=== PATIENT | male | born 1985 | race Caucasian/White ===

== ENCOUNTER 2020-06-11 21:38 | Inpatient (IN) | payer OTHER ==
[~2020-06-11] VITALS: Ht 170.2 cm; Wt 73.2 kg
[~2020-06-11 21:38] MED LIST: AGM875T PO; CLIN-62 PO; CPR500T PO; DOXY-233 PO; HYDR-1231 PO; HYDR-34 PO; METR500T PO; MSL400TEC PO; OXYC10TA8 PO; TRM50T PO; iron sulfate PO
[2020-06-11] MEDS ORDERED: NS IV 1000 ML 1,000 ML IV STA (21:58)
[2020-06-11] MEDS ORDERED: ONDANSETRON 4 MG/2 ML (SDV) Z0FRAN IVP ONE (22:00)
--- NOTE | 2020-06-11 22:06 | ED Abdominal Pain ---
General Chief Complaint: Abdominal/GI Problems Stated Complaint: BOWEL OBSTRUCTION Source of Information: Patient Exam Limitations: No Limitations History of Present Illness Date Seen by Provider: Jun 11, 2020 Time Seen by Provider: 22:03 Initial Comments Patient is a 35-year-old male who presents to the emergency department today wit h a chief complaint of abdominal pain, nausea and vomiting. Patient states symptoms started 2 days ago on Thursday. Patient states that normally he has a bowel movement every 3-4 hours secondary to a history of abdominal surgeries and (possible) Crohn's disease . Patient states that symptoms began with diarrhea and then bowel movements stopped and he stayed nauseated and has co ntinued to vomit up everything he is trying to eat over the last 3 days. He denies fevers or chills. Has significant abdominal pain. He is declining pain medications at this time. Denies problems with urination. Denies black or bloody stools. No other recent illnesses or injuries. Abdominal surgery was an appendectomy. Also patient had a gut a parasite while deployed in [place] with the [employer] Has had endoscoies/colonoscopies before. 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 All other review of systems reviewed and negative except as stated above. Timing/Duration: 2-3 Days Severity/Quality: Severe, Cramping Location: Generalized Abdomen Radiation: Back, Flank (Bilateral flanks) Activities at Onset: None Allergies and Home Medications Allergies Coded Allergies: naproxen (Unverified Allergy, Unknown, 09/18/13) Uncoded Allergies: ADVANCED FORM OF PCN (Allergy, Mild, 09/18/13) Home Medications No Active Prescriptions or Reported Meds Patient Home Medication List Home Medication List Reviewed: Yes Review of Systems Review of Systems Constitutional: see HPI EENTM: No Symptoms Reported Respiratory: No Symptoms Reported Cardiovascular: No Symptoms Reported Gastrointestinal: Abdomen Distended, Abdominal Pain, Nausea, Poor Appetite, Vomiting Genitourinary: No Symptoms Reported Musculoskeletal: no symptoms reported Skin: other (Diaphoresis) All Other Systems Reviewed Negative Unless Noted: Yes Past Qssdhfk-Hgcybf-Vtcawy Hx Patient Social History Recent Foreign Travel: No Contact w/Someone Who Travel: No Immunizations Up To Date Tetanus Booster (TDap): Less than 5yrs PED Vaccines UTD: Yes Date of Influenza Vaccine: May 08, 2013 Past Medical History Abdominal, Appendectomy, Bowel Surgery Reproductive Disorders: No Crohns Disease, Ulcer Chronic Back Pain Adverse Reaction/Blood Tranf: No Family Medical History No Pertinent Family Hx Physical Exam Vital Signs Vital Signs - First Documented 06/11/20 21:45 Temp 36.7 Pulse 114 Resp 18 B/P (MAP) 142/98 (113) Pulse Ox 96 O2 Delivery Room Air Capillary Refill : Height/Weight/BMI Height: 5'7" Weight: 155lbs. oz. 70.423809dw; BMI Method:Stated General Appearance: WD/WN, no apparent distress HEENT: PERRL/EOMI Neck: full range of motion Respiratory: lungs clear, normal breath sounds, no respiratory distress Cardiovascular: regular rate, rhythm Gastrointestinal: abnormal bowel sounds (Hypoactive bowel sounds), guarding, tenderness Extremities: non-tender, normal inspection, no pedal edema, no calf tenderness Neurologic/Psychiatric: no motor/sensory deficits, alert, normal mood/affect, oriented x 3 Skin: normal color, diaphoresis Progress/Results/Core Measures Results/Orders Lab Results Laboratory Tests Test 06/11/20 21:50 06/12/20 00:25 Range/Units White Blood Count 8.3 4.3-11.0 10^3/uL Red Blood Count 5.97 H 4.30-5.52 10^6/uL Hemoglobin 16.8 13.3-17.7 g/dL Hematocrit 48 40-54 % Mean Corpuscular Volume 81 80-99 fL Mean Corpuscular Hemoglobin 28 25-34 pg Mean Corpuscular Hemoglobin Concent 35 32-36 g/dL Red Cell Distribution Width 12.8 10.0-14.5 % Platelet Count 294 130-400 10^3/uL Mean Platelet Volume 9.9 9.0-12.2 fL Immature Granulocyte % (Auto) 0 % Neutrophils (%) (Auto) 70 42-75 % Lymphocytes (%) (Auto) 13 12-44 % Monocytes (%) (Auto) 15 H 0-12 % Eosinophils (%) (Auto) 2 0-10 % Basophils (%) (Auto) 0 0-10 % Neutrophils # (Auto) 5.8 1.8-7.8 10^3/uL Lymphocytes # (Auto) 1.1 1.0-4.0 10^3/uL Monocytes # (Auto) 1.2 H 0.0-1.0 10^3/uL Eosinophils # (Auto) 0.1 0.0-0.3 10^3/uL Basophils # (Auto) 0.0 0.0-0.1 10^3/uL Immature Granulocyte # (Auto) 0.0 0.0-0.1 10^3/uL Sodium Level 135 135-145 MMOL/L Potassium Level 3.4 L 3.6-5.0 MMOL/L Chloride Level 101 98-107 MMOL/L Carbon Dioxide Level 18 L 21-32 MMOL/L Anion Gap 16 H 5-14 MMOL/L Blood Urea Nitrogen 12 7-18 MG/DL Creatinine 1.01 0.60-1.30 MG/DL Estimat Glomerular Filtration Rate > 60 BUN/Creatinine Ratio 12 Glucose Level 149 H 70-105 MG/DL Calcium Level 9.1 8.5-10.1 MG/DL Corrected Calcium 8.9 8.5-10.1 MG/DL Total Bilirubin 2.7 H 0.1-1.0 MG/DL Aspartate Amino Transf (AST/SGOT) 13 5-34 U/L Alanine Aminotransferase (ALT/SGPT) 12 0-55 U/L Alkaline Phosphatase 124 40-136 U/L Total Protein 7.6 6.4-8.2 GM/DL Albumin 4.3 3.2-4.5 GM/DL Lipase 8 8-78 U/L Urine Color YELLOW Urine Clarity CLEAR Urine pH 6.5 5-9 Urine Specific [place] <=1.005 1.016-1.022 Urine Protein NEGATIVE NEGATIVE Urine Glucose (UA) NEGATIVE NEGATIVE Urine Ketones NEGATIVE NEGATIVE Urine Nitrite NEGATIVE NEGATIVE Urine Bilirubin NEGATIVE NEGATIVE Urine Urobilinogen 0.2 < = 1.0 MG/DL Urine Leukocyte Esterase NEGATIVE NEGATIVE Urine RBC (Auto) NEGATIVE NEGATIVE Urine RBC 2-5 H /HPF Urine WBC 0-2 /HPF Urine Squamous Epithelial Cells 0-2 /HPF Urine Crystals NONE /LPF Urine Bacteria NEGATIVE /HPF Urine Casts NONE /LPF Urine Mucus SMALL H /LPF Urine Culture Indicated NO My Orders Orders - MELANIE CASTRO MD Ed Iv/Invasive Line Start (06/11/20 21:58) Cbc With Automated Diff (06/11/20 21:58) Comprehensive Metabolic Panel (06/11/20 21:58) Lipase (06/11/20 21:58) Ua Culture If Indicated (06/11/20 21:58) Ct Abdomen/Pelvis W (06/11/20 21:58) Ns Iv 1000 Ml (Sodium Chloride 0.9%) (06/11/20 21:58) Ondansetron Injection (Zofran Injectio (06/11/20 22:00) Diatrizoate Meglum/Sodium 37% (Gastrogra (06/11/20 22:15) Hydromorphone Injection (Dilaudid Inject (06/11/20 22:15) Iohexol Injection (Omnipaque 350 Mg/Ml 1 (06/11/20 23:30) Received Contrast (Hold Metformin- Contr (06/11/20 23:30) Sodium Chloride Flush (Catheter Flush Sy (06/11/20 23:30) Ns (Ivpb) (Sodium Chloride 0.9% Ivpb Bag (06/11/20 23:30) Medications Given in ED Current Medications Medications Dose Ordered Sig/Juana Route Start Time Stop Time Status Last Admin Dose Admin Diatrizoate Meglum/ Diatrizoate Sod 120 ml ONCE ONCE PO 06/11/20 22:15 06/11/20 22:16 DC 06/11/20 22:30 30 ML Hydromorphone HCl 0.5 mg ONCE ONCE IV 06/11/20 22:15 06/11/20 22:16 DC 06/11/20 22:50 0.5 MG Iohexol 100 ml ONCE ONCE IV 06/11/20 23:30 06/11/20 23:31 DC 06/11/20 23:49 100 ML Ondansetron HCl 8 mg ONCE ONCE IVP 06/11/20 22:00 06/11/20 22:01 DC 06/11/20 22:10 8 MG Sodium Chloride 10 ml NEEDED PRN IV 06/11/20 23:30 06/11/20 23:49 10 ML Sodium Chloride 100 ml ONCE ONCE IV 06/11/20 23:30 06/11/20 23:31 DC 06/11/20 23:49 80 ML Vital Signs/I&O 06/11/20 21:45 Temp 36.7 Pulse 114 Resp 18 B/P (MAP) 142/98 (113) Pulse Ox 96 O2 Delivery Room Air 06/12/20 00:00 Intake Total 1000 ml Balance 1000 ml Progress Progress Note : Time: 00:43 Progress Note Patient has been resting comfortably did take a half a milligram of Dilaudid earlier. Helped his pain minimally. Patient is given IV fluids here in the emergency department. CAT scan does confirm a small bowel obstruction with an area of abnormal thickened small bowel segments in the right side of the abdomen with either a small adjacent abscess with a tiny focus of air or a sinus tract extending towards the abdominal wall. Some fluid in the colon that may suggest diarrhea. Rest of the intraperitoneal space was unremarkable per stat rad. Patient is given a another half milligram of Dilaudid here in the emergency department at this time. Case is discussed with Dr. Yoder on for general surgery who accepts the patient for admission. Departure Communication (Admissions) Time/Spoke to Admitting Phy: 00:[address] Yoder on for general surgery, accepts the patient for admission. Impression Primary Impression: Abdominal pain Qualified Codes: R10.84 - Generalized abdominal pain Additional Impression: Small bowel obstruction Disposition: ADMITTED INPATIENT Condition: Stable Admissions Decision to Admit Reason: Admit from ER (General) Decision to Admit/Date: Jun 12, 2020 Time/Decision to Admit Time: 00:40 Departure-Patient Inst. Referrals: MEDARDO MURPHY DO (PCP/Family) Primary Care Physician Scripts No Active Prescriptions or Reported Meds MELANIE CASTRO MD Jun 11, 2020 22:06
[2020-06-11 22:08] LABS: ALBUMIN 4.3 GM/DL (3.2-4.5); BASOPHILS % (AUTO) 0 % (0-10); EOSINOPHILS # (AUTO) 0.1 10^3/uL (0.0-0.3); EOSINOPHILS % (AUTO) 2 % (0-10); HEMATOCRIT 48 % (40-54); HEMOGLOBIN 16.8 g/dL (13.3-17.7); LYMPHOCYTES # (AUTO) 1.1 10^3/uL (1.0-4.0); LYMPHOCYTES % (AUTO) 13 % (12-44); MEAN CORPUSCULAR HEMOGLOBIN 28 pg (25-34); MEAN CORPUSCULAR HGB CONC 35 g/dL (32-36); MEAN CORPUSCULAR VOLUME 81 fL (80-99); MEAN PLATELET VOLUME 9.9 fL (9.0-12.2); MONOCYTES # (AUTO) 1.2 10^3/uL (0.0-1.0); MONOCYTES % (AUTO) 15 % (0-12); NEUTROPHILS # (AUTO) 5.8 10^3/uL (1.8-7.8); NEUTROPHILS % (AUTO) 70 % (42-75); PLATELET COUNT 294 10^3/uL (130-400); WHITE BLOOD COUNT 8.3 10^3/uL (4.3-11.0)
[2020-06-11 22:09] LABS: CHLORIDE 101 MMOL/L (98-107); POTASSIUM 3.4 MMOL/L (3.6-5.0); SODIUM 135 MMOL/L (135-145)
[2020-06-11 22:10] LABS: CALCIUM 9.1 MG/DL (8.5-10.1)
[2020-06-11 22:11] LABS: GLUCOSE 149 MG/DL (70-105); TOTAL PROTEIN 7.6 GM/DL (6.4-8.2)
[2020-06-11 22:12] LABS: CARBON DIOXIDE 18 MMOL/L (21-32)
[2020-06-11 22:13] LABS: BILIRUBIN,TOTAL 2.7 MG/DL (0.1-1.0)
[2020-06-11 22:14] LABS: ALKALINE PHOSPHATASE 124 U/L (40-136)
[2020-06-11 22:15] LABS: CREATININE SERUM 1.01 MG/DL (0.60-1.30); GFR ESTIMATED > 60
[2020-06-11] MEDS ORDERED: DIATRIZOATE MEGLUM/SODIUM 37% 120 ML (GASTROGRAFIN) PO ONE (22:15)
[2020-06-11] MEDS ORDERED: HYDROmorphone 2 MG/ML VIAL (DILAUDID) IV ONE (22:15)
[2020-06-11 22:16] LABS: BUN/CREATININE RATIO 12
[2020-06-11 22:18] LABS: ALANINE AMINOTRANSFERASE 12 U/L (0-55); LIPASE 8 U/L (8-78)
[2020-06-11] MEDS ORDERED: HOLD METFORMIN - RECEIVED CONTRAST 20 ML VIAL IV SCH (23:30)
[2020-06-11] MEDS ORDERED: CATHETER FLUSH 10 ML SYR IV PRN (23:30)
[2020-06-11] MEDS ORDERED: IOHEXOL 350 MG/ML 100 ML (OMNIPAQUE 350) VIAL IV ONE (23:30)
[2020-06-11] MEDS ORDERED: NS 100 ML (IVPB) BAG IV ONE (23:30)
[2020-06-12] VITALS (7 sets, daily range): BP systolic 89–152; BP diastolic 51–74
[2020-06-12 00:35] LABS: BILIRUBIN,URINE NEGATIVE (NEGATIVE); CLARITY,URINE CLEAR; COLOR,URINE YELLOW; GLUCOSE, URINE (UA) NEGATIVE (NEGATIVE); KETONES,URINE NEGATIVE (NEGATIVE); LEUKOCYTE ESTERASE ,URINE NEGATIVE (NEGATIVE); NITRITE,URINE NEGATIVE (NEGATIVE); PH,URINE 6.5 (5-9); PROTEIN,URINE NEGATIVE (NEGATIVE)
[2020-06-12] MEDS ORDERED: HYDROmorphone 2 MG/ML VIAL (DILAUDID) IV ONE (00:45)
[2020-06-12 01:01] LABS: BACTERIA,URINE NEGATIVE /HPF; SQUAMOUS EPITHELIAL CELL,UR 0-2 /HPF; WBC,URINE 0-2 /HPF
--- NOTE | 2020-06-12 01:30 | NUR ---
JACK SMITH admitted to room 415-1, with an admitting diagnosis of SMALL BOWEL OBSTRUCTION; ABDOMINAL PAIN, on 06/12/20 from ER via , accompanied by ED STAFF. JACK SMITH introduced to surroundings, call light, bed controls, phone, TV, temperature control, lights, meal times, smoking policy, visitor policy, side rail policy, bathrooms and showers. Patient Rights given to patient in the handbook. JACK SMITH verbalizes understanding that [facility] is not responsible for the loss or damage to any personal effects or valuables that are kept in the patients posession during their hospitalization.
[2020-06-12] MEDS: NS IV 1000 ML 1,000 ML IV SCH ×3 (01:35→18:17)
[2020-06-12] MEDS ORDERED: ONDANSETRON 4 MG/2 ML (SDV) Z0FRAN IVP PRN (01:45)
[2020-06-12] MEDS ORDERED: RT-ALBUTEROL SULF 2.5 MG/3 ML PRE-MIX VIAL INH PRN (02:15)
[2020-06-12] MEDS: HYDROmorphone 2 MG/ML VIAL (DILAUDID) IV PRN ×5 (04:31→21:32)
[2020-06-12 06:01] LABS: BASOPHILS % (AUTO) 0 % (0-10); EOSINOPHILS # (AUTO) 0.1 10^3/uL (0.0-0.3); EOSINOPHILS % (AUTO) 2 % (0-10); HEMATOCRIT 40 % (40-54); HEMOGLOBIN 13.8 g/dL (13.3-17.7); LYMPHOCYTES # (AUTO) 0.8 10^3/uL (1.0-4.0); LYMPHOCYTES % (AUTO) 14 % (12-44); MEAN CORPUSCULAR HEMOGLOBIN 29 pg (25-34); MEAN CORPUSCULAR HGB CONC 35 g/dL (32-36); MEAN CORPUSCULAR VOLUME 82 fL (80-99); MEAN PLATELET VOLUME 10.6 fL (9.0-12.2); MONOCYTES # (AUTO) 1.3 10^3/uL (0.0-1.0); MONOCYTES % (AUTO) 23 % (0-12); NEUTROPHILS # (AUTO) 3.4 10^3/uL (1.8-7.8); NEUTROPHILS % (AUTO) 60 % (42-75); PLATELET COUNT 224 10^3/uL (130-400); WHITE BLOOD COUNT 5.7 10^3/uL (4.3-11.0)
--- NOTE | 2020-06-12 07:08 | Diagnostic Imaging Report ---
PROCEDURE: CT abdomen and pelvis with contrast. TECHNIQUE: Multiple contiguous axial images were obtained through the abdomen and pelvis after administration of intravenous contrast. Auto Exposure Controls were utilized during the CT exam to meet ALARA standards for radiation dose reduction. All CT scans use one or more of the following dose optimizing techniques: automated exposure control, MA and/or KvP adjustment based on patient size and exam type or iterative reconstruction. INDICATION: Abdominal pain and constipation with nausea and vomiting x2 days. History of multiple bowel surgeries. CORRELATION STUDY: 03/19/2015 FINDINGS: LOWER THORAX: Clear. LIVER: Unremarkable. GALLBLADDER: Cholecystectomy. SPLEEN: Unremarkable. PANCREAS: Unremarkable. ADRENAL GLANDS: Unremarkable. KIDNEYS: Normal configuration. No calcification or obstruction. ABDOMINAL AORTA: Unremarkable, nonaneurysmal. GASTROINTESTINAL TRACT: Findings compatible with previous abdominal surgery with areas of anastomosis. There is abnormal thickened small bowel segment in the right side of the abdomen which is near the vicinity of anastomotic suture clips. An area of abnormal thickening of the small bowel segments, there is either small adjacent abscess with tiny focus of air or sinus track extending towards the abdominal wall. There is resultant small bowel obstruction. There is some fluid in the distal colon may reflective of underlying diarrhea. URINARY BLADDER: Unremarkable. REPRODUCTIVE: Prostate gland unremarkable. OSSEOUS STRUCTURES: No acute abnormality. OTHER: None. IMPRESSION: 1. Rather extensive abnormal thickened small bowel segment of the right side of the abdomen. There is concern for small adjacent abscess with tiny focus of air or developing sinus track towards the abdominal wall. Resultant small bowel obstruction appears to be present. Initial report was provided by [facility]. Dictated by: Dictated on workstation # [id number]
--- NOTE | 2020-06-12 09:34 | History & Physical-Surgical ---
History of Present Illness History of Present Illness Reason for visit/HPI Surgery asked to see and admit pt regarding PSBO. HPI per ED: Patient is a 35-year-old male who presents to the emergency department today with a chief complaint of abdominal pain, nausea and vomiting. Patient states symptoms started 2 days ago on Thursday. Patient states that normally he has a bowel movement every 3-4 hours secondary to a history of abdominal surgeries and (possible) Crohn's disease . Patient states that symptoms began with diarrhea and then bowel movements stopped and he stayed nauseated and has continued to vomit up everything he is trying to eat over the last 3 days. He denies fevers or chills. Has significant abdominal pain. He is declining pain medications at this time. Denies problems with urination. Denies black or bloody stools. No other recent illnesses or injuries. Abdominal surgery was an appendectomy. Also patient had a gut a parasite while deployed in [place] with the [employer]. Has had endoscoies/colonoscopies before. 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 All other review of systems reviewed and negative except as stated above. Timing/Duration: 2-3 Days Severity/Quality: Severe, Cramping Location: Generalized Abdomen Radiation: Back, Flank (Bilateral flanks) Activities at Onset: None When I spoke to pt this am, he stated that after he drank the contrast he had a watery brown BM. Still not passing any gas, but is feeling slightly better. He states he lives with abdominal pain of a 2 out of 10, right now it is a 4-5 but worse with movement and the past 2 days had been at least an 8. He describes diffuse cramping abd pain, not relieved with anything and associated with intractable vomiting for 2-3 days. Last time he vomited was around 6pm last night. First surgery was 2012 ruptured appy, in 2014 he had major laparotomy with what he describes as removal of small bowel, half of rectum and 2/3 of large bowel. In 2017 he had laparoscopic cholecystectomy. Between 2011 and 2014, he had "multiple bags on my stomach to catch intestine contents". He described bilateral flank pain. Date of Admission Jun 12, 2020 at 00:42 Time Seen by a Provider: 08:34 I consulted on this patient on 06/12/20 09:28 Attending Physician Delman,Nilo B DO Admitting Physician Sandra Martínez DO Consult Allergies and Home Medications Allergies Coded Allergies: naproxen (Unverified Allergy, Unknown, 09/18/13) Uncoded Allergies: ADVANCED FORM OF PCN (Allergy, Mild, 09/18/13) Home Medications No Active Prescriptions or Reported Meds Patient Home Medication List Home Medication List Reviewed: Yes Past Gptjyxe-Yblanw-Sloskh Hx Patient Social History Alcohol Use: Denies Use Recreational Drug Use: No Smoking Status: Never a Smoker Type Used: Electronic/Vapor 2nd Hand Smoke Exposure: No Recent Foreign Travel: No Contact w/Someone Who Travel: No Recent Infectious Disease Expo: No Immunizations Up To Date Tetanus Booster (TDap): Less than 5yrs PED Vaccines UTD: Yes Date of Pneumonia Vaccine: Apr 25, 2020 Date of Influenza Vaccine: Apr 25, 2020 Surgeries History of Surgeries: Yes (APPY/ABSCESS 2011, "TRIPLE COLON RESECTION" 10/2013, PICC LINE/REMOVED) Surgeries: Abdominal, Appendectomy, Bowel Surgery, Gallbladder Respiratory History of Respiratory Disorde: No Cardiovascular History of Cardiac Disorders: Yes (IRREGULAR HEART RATE AT TIMES. EX;DURING STRESS) Neurological History of Neurological Disord: No Reproductive System Hx Reproductive Disorders: No Genitourinary History of Genitourinary Disor: No Gastrointestinal History of Gastrointestinal Di: Yes (INTESTINAL PARASITE/DASHA 2009, APPY/ABSCESS, TRIPLE BOWEL RESECTION 2013) Gastrointestinal Disorders: Crohns Disease, Ulcer Musculoskeletal History of Musculoskeletal Dis: Yes (R/T CROHN'S) Musculoskeletal Disorders: Chronic Back Pain Endocrine History of Endocrine Disorders: No HEENT History of HEENT Disorders: No Loss of Vision: Denies Hearing Impairment: Denies Cancer History of Cancer: No Psychosocial History of Psychiatric Problem: No Integumentary History of Skin or Integumenta: No Blood Transfusions History of Blood Disorders: No Adverse Reaction to a Blood Tr: No Family Medical History Significant Family History: No Pertinent Family Hx, Other Conditions/Hx (Pt states his parents do not have DM, HTN or CAD) Family Medial History: Patient reports no known family medical history. Review of Systems Constitutional: No chills, No diaphoresis; malaise, weakness EENTM: No blurred vision, No double vision, No mouth pain, No mouth swelling, No epistaxis Respiratory: No cough, No dyspnea on exertion, No hemoptysis, No short of breath Cardiovascular: No chest pain, No edema, No Hx of Intervention; palpitations Gastrointestinal: No hematemesis, No jaundice; nausea, vomiting Genitourinary: No dysuria, No frequency, No hematuria Musculoskeletal: back pain, joint pain, joint swelling, muscle pain, muscle stiffness Skin: No change in color, No change in hair/nails Psychiatric/Neurological: Denies Anxiety, Denies Depressed, Denies Seizure, Denies Tremors pt denies any hx of abnormal bleeding or bruising Physical Exam Vital Signs Vital Signs - First Documented 06/11/20 21:45 Temp 36.7 Pulse 114 Resp 18 B/P (MAP) 142/98 (113) Pulse Ox 96 O2 Delivery Room Air Capillary Refill : Less Than 3 Seconds Height, Weight, BMI Height: 5'7" Weight: 155lbs. oz. 70.577901zf; 25.26 BMI Method:Stated General Appearance: WD/WN, Mild Distress Eyes: Bilateral Eye PERRL, Bilateral Eye EOMI HEENT: Pharynx Normal, Moist Mucous Membranes; No Scleral Icterus (L), No Scleral Icterus (R) Neck: Full Range of Motion, Non Tender, Supple Respiratory: Chest Non Tender, Lungs Clear, Normal Breath Sounds, No Accessory Muscle Use, No Respiratory Distress Cardiovascular: Regular Rate, Rhythm, No Murmur Gastrointestinal: No Organomegaly; No Distended; Guarding, Tenderness Rectal: Deferred Back: No CVA Tenderness, No Vertebral Tenderness Extremity: Normal Capillary Refill, Normal Range of Motion, No Calf Tenderness, No Pedal Edema Neurologic/Psychiatric: Alert, Oriented x3, No Motor/Sensory Deficits, Normal Mood/Affect, form worker II-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 Norm as Tested Skin: Normal Color, Warm/Dry Lymphatic: No Adenopathy (neck, axilla or groin) Data Review Labs Laboratory Tests 06/11/20 21:50: White Blood Count 8.3, Red Blood Count 5.97H, Hemoglobin 16.8, Hematocrit 48, Mean Corpuscular Volume 81, Mean Corpuscular Hemoglobin 28, Mean Corpuscular Hemoglobin Concent 35, Red Cell Distribution Width 12.8, Platelet Count 294, Mean Platelet Volume 9.9, Immature Granulocyte % (Auto) 0, Neutrophils (%) (Auto) 70, Lymphocytes (%) (Auto) 13, Monocytes (%) (Auto) 15H, Eosinophils (%) (Auto) 2, Basophils (%) (Auto) 0, Neutrophils # (Auto) 5.8, Lymphocytes # (Auto) 1.1, Monocytes # (Auto) 1.2H, Eosinophils # (Auto) 0.1, Basophils # (Auto) 0.0, Immature Granulocyte # (Auto) 0.0, Sodium Level 135, Potassium Level 3.4L, Chloride Level 101, Carbon Dioxide Level 18L, Anion Gap 16H, Blood Urea Nitrogen 12, Creatinine 1.01, Estimat Glomerular Filtration Rate > 60, BUN/Creatinine Ratio 12, Glucose Level 149H, Calcium Level 9.1, Corrected Calcium 8.9, Total Bilirubin 2.7H, Aspartate Amino Transf (AST/SGOT) 13, Alanine Aminotransferase (ALT/SGPT) 12, Alkaline Phosphatase 124, Total Protein 7.6, Albumin 4.3, Lipase 8 06/12/20 00:25: Urine Color YELLOW, Urine Clarity CLEAR, Urine pH 6.5, Urine Specific [place] <=1.005, Urine Protein NEGATIVE, Urine Glucose (UA) NEGATIVE, Urine Ketones NEGATIVE, Urine Nitrite NEGATIVE, Urine Bilirubin NEGATIVE, Urine Urobilinogen 0.2, Urine Leukocyte Esterase NEGATIVE, Urine RBC (Auto) NEGATIVE, Urine RBC 2- 5H, Urine WBC 0-2, Urine Squamous Epithelial Cells 0-2, Urine Crystals NONE, Urine Bacteria NEGATIVE, Urine Casts NONE, Urine Mucus SMALLH, Urine Culture Indicated NO 06/12/20 05:16: White Blood Count 5.7, Red Blood Count 4.85, Hemoglobin 13.8, Hematocrit 40, Mean Corpuscular Volume 82, Mean Corpuscular Hemoglobin 29, Mean Corpuscular Hemoglobin Concent 35, Red Cell Distribution Width 12.9, Platelet Count 224, Marija n Platelet Volume 10.6, Immature Granulocyte % (Auto) 0, Neutrophils (%) (Auto) 60, Lymphocytes (%) (Auto) 14, Monocytes (%) (Auto) 23H, Eosinophils (%) (Auto) 2, Basophils (%) (Auto) 0, Neutrophils # (Auto) 3.4, Lymphocytes # (Auto) 0.8L, Monocytes # (Auto) 1.3H, Eosinophils # (Auto) 0.1, Basophils # (Auto) 0.0, Immature Granulocyte # (Auto) 0.0 Radiology Date of Exam:06/11/20 CT ABDOMEN/PELVIS W PROCEDURE: CT abdomen and pelvis with contrast. TECHNIQUE: Multiple contiguous axial images were obtained through the abdomen and pelvis after administration of intravenous contrast. Auto Exposure Controls were utilized during the CT exam to meet ALARA standards for radiation dose reduction. All CT scans use one or more of the following dose optimizing techniques: automated exposure control, MA and/or KvP adjustment based on patient size and exam type or iterative reconstruction. INDICATION: Abdominal pain and constipation with nausea and vomiting x2 days. History of multiple bowel surgeries. CORRELATION STUDY: 03/19/2015 FINDINGS: LOWER THORAX: Clear. LIVER: Unremarkable. GALLBLADDER: Cholecystectomy. SPLEEN: Unremarkable. PANCREAS: Unremarkable. ADRENAL GLANDS: Unremarkable. KIDNEYS: Normal configuration. No calcification or obstruction. ABDOMINAL AORTA: Unremarkable, nonaneurysmal. GASTROINTESTINAL TRACT: Findings compatible with previous abdominal surgery with areas of anastomosis. There is abnormal thickened small bowel segment in the right side of the abdomen which is near the vicinity of anastomotic suture clips. An area of abnormal thickening of the small bowel segments, there is either small adjacent abscess with tiny focus of air or sinus track extending towards the abdominal wall. There is resultant small bowel obstruction. There is some fluid in the distal colon may reflective of underlying diarrhea. URINARY BLADDER: Unremarkable. REPRODUCTIVE: Prostate gland unremarkable. OSSEOUS STRUCTURES: No acute abnormality. OTHER: None. IMPRESSION: 1. Rather extensive abnormal thickened small bowel segment of the right side of the abdomen. There is concern for small adjacent abscess with tiny focus of air or developing sinus track towards the abdominal wall. Resultant small bowel obstruction appears to be present. Initial report was provided by [facility]. Dictated on workstation # [id number] Dict: 06/12/20 0701 Trans: 06/12/20 0708 [id number] Interpreted by: SCOTT MORENO DO Assessment/Plan Assessment/Plan Admission Diagonsis Partial small bowel obstruction Nausea and Vomiting Hyperbilirubinemia Admission Status: Observation Assessment/Plan Partial small bowel obstruction Nausea and Vomiting Hyperbilirubinemia Pt is doing slightly better after having a BM. I personally viewed the CT and do not see a complete obstruction or even a transition point; there is however thickened small bowel. I could not see the suspected abscess and will go over the films with radiologist. I ordered a flat plate to see if the contrast has made it into the large bowel. I do not believe pt had the exact colon resection that he is describing; i.e rectum appears intact with no anastomosis. He has pain meds and anti- emetics as needed. If flat plate looks ok, will start clears and have pt ambulate. He should also use his IS. Will monitor labs. Clinical Quality Measures DVT/VTE Risk/Contraindication: Risk Factor Score Per Nursin RFS Level Per Nursing on Admit: 1=Low/No VTE PPX NILO DEAL DO Jun 12, 2020 09:34
--- NOTE | 2020-06-12 09:54 | Diagnostic Imaging Report ---
INDICATION: Abdominal pain. COMPARISON: CT from 06/11/2020 FINDINGS: 2 supine radiographic views of the abdomen were obtained. Small bowel loops in the left hemiabdomen are abnormally air-filled and distended. This corresponds to findings seen on recent CT abdomen pelvis from one day prior. There is no large collection of free peritoneal air. Surgical suture line is noted in the right hemiabdomen. No unexpected extraosseous calcifications or radiopaque foreign bodies are identified. IMPRESSION: 1. Persistent abnormal moderate gaseous distention of the small bowel concerning for underlying obstruction. Dictated by: Dictated on workstation # [id number]
[2020-06-13] VITALS: BP 104/61
[2020-06-13] MEDS: NS IV 1000 ML 1,000 ML IV SCH ×3 (00:30→23:08)
[2020-06-13] MEDS: HYDROmorphone 2 MG/ML VIAL (DILAUDID) IV PRN ×6 (01:26→20:33)
[2020-06-13 03:55] VITALS: BP 113/62
[2020-06-13 08:00] VITALS: BP 128/59
[2020-06-13 10:16] LABS: BASOPHILS % (AUTO) 1 % (0-10); EOSINOPHILS # (AUTO) 0.1 10^3/uL (0.0-0.3); EOSINOPHILS % (AUTO) 1 % (0-10); HEMATOCRIT 39 % (40-54); LYMPHOCYTES # (AUTO) 0.8 10^3/uL (1.0-4.0); LYMPHOCYTES % (AUTO) 13 % (12-44); MEAN CORPUSCULAR HEMOGLOBIN 28 pg (25-34); MEAN CORPUSCULAR HGB CONC 34 g/dL (32-36); MEAN CORPUSCULAR VOLUME 85 fL (80-99); MEAN PLATELET VOLUME 9.6 fL (9.0-12.2); MONOCYTES # (AUTO) 1.3 10^3/uL (0.0-1.0); MONOCYTES % (AUTO) 20 % (0-12); NEUTROPHILS # (AUTO) 4.1 10^3/uL (1.8-7.8); NEUTROPHILS % (AUTO) 64 % (42-75); PLATELET COUNT 208 10^3/uL (130-400); WHITE BLOOD COUNT 6.4 10^3/uL (4.3-11.0)
[2020-06-13 10:31] LABS: ALBUMIN 3.3 GM/DL (3.2-4.5); CHLORIDE 106 MMOL/L (98-107); POTASSIUM 3.5 MMOL/L (3.6-5.0); SODIUM 137 MMOL/L (135-145)
[2020-06-13 10:32] LABS: CALCIUM 8.2 MG/DL (8.5-10.1)
[2020-06-13 10:33] LABS: GLUCOSE 82 MG/DL (70-105)
[2020-06-13 10:34] LABS: TOTAL PROTEIN 5.8 GM/DL (6.4-8.2)
[2020-06-13 10:35] LABS: BILIRUBIN,TOTAL 1.8 MG/DL (0.1-1.0); CARBON DIOXIDE 20 MMOL/L (21-32)
[2020-06-13] MEDS: predniSONE 20 MG TAB PO SCH ×2 (10:36→11:52)
[2020-06-13 10:37] LABS: ALKALINE PHOSPHATASE 95 U/L (40-136); GFR ESTIMATED > 60
[2020-06-13 10:38] LABS: BUN/CREATININE RATIO 9
[2020-06-13 10:40] LABS: ALANINE AMINOTRANSFERASE 11 U/L (0-55)
[2020-06-13 10:42] LABS: BAND NEUTROPHILS 29 %; EOSINOPHILS % (MANUAL) 1 %; LYMPHOCYTES % (MANUAL) 15 %; MONOCYTES % (MANUAL) 20 %; NEUTROPHILS % (MANUAL) 35 %; RBC MORPH NORMAL
[2020-06-13 12:00] VITALS: BP 122/57
--- NOTE | 2020-06-13 12:06 | Progress Note - Surgery ---
Subjective Time Seen by a Provider: 11:27 Subjective/Events-last exam Pt seen and examined, states he is still having pretty severe Right sided abdominal pain. Pt is not having any flatus or BM, but also denies nausea and vomiting. He would like to try some liquids. Review of Systems General: No Chills, No Night Sweats Pulmonary: No Dyspnea, No Cough Cardiovascular: No: Chest Pain, Palpitations Gastrointestinal: Abdominal Pain; No: Nausea, Vomiting Genitourinary: No Dysuria, No Frequency Objective Exam Vital Signs Date Time Temp Pulse Resp B/P (MAP) Pulse Ox O2 Delivery O2 Flow Rate FiO2 06/13/20 08:00 36.9 102 18 128/59 (82) 97 Room Air 06/13/20 08:00 Room Air 06/13/20 07:59 94 Room Air 06/13/20 03:55 37.6 109 16 113/62 (79) 94 Room Air 06/13/20 00:00 37.9 111 17 104/61 (75) 95 Room Air 06/12/20 20:00 37.0 98 18 121/74 (90) 96 Room Air 06/12/20 19:52 Room Air 06/12/20 19:30 Room Air 06/12/20 16:00 36.7 97 18 126/66 (86) 96 Room Air 06/12/20 12:00 36.5 119 20 152/67 (95) 94 Room Air I & O 06/13/20 07:00 Intake Total 1000 ml Output Total 551 ml Balance 449 ml Capillary Refill : Less Than 3 Seconds General Appearance: WD/WN, Mild Distress HEENT: Pharynx Normal, Moist Mucous Membranes; No Scleral Icterus (L), No Scleral Icterus (R) Neck: Full Range of Motion, Non Tender, Supple Respiratory: Chest Non Tender, Lungs Clear, Normal Breath Sounds, No Accessory Muscle Use, No Respiratory Distress Cardiovascular: Regular Rate, Rhythm, No Murmur Gastrointestinal: abnormal bowel sounds (Hypoactive bowel sounds), guarding, tenderness Extremity: No Calf Tenderness, No Pedal Edema Results Lab Laboratory Tests 06/13/20 10:06: White Blood Count 6.4, Red Blood Count 4.58, Hemoglobin 13.0L, Hematocrit 39L, Mean Corpuscular Volume 85, Mean Corpuscular Hemoglobin 28, Mean Corpuscular Hemoglobin Concent 34, Red Cell Distribution Width 13.0, Platelet Count 208, Mean Platelet Volume 9.6, Immature Granulocyte % (Auto) 1, Neutrophils (%) (Auto) 64, Lymphocytes (%) (Auto) 13, Monocytes (%) (Auto) 20H, Eosinophils (%) (Auto) 1, Basophils (%) (Auto) 1, Neutrophils # (Auto) 4.1, Lymphocytes # (Auto) 0.8L, Monocytes # (Auto) 1.3H, Eosinophils # (Auto) 0.1, Basophils # (Auto) 0.0, Immature Granulocyte # (Auto) 0.1, Neutrophils % (Manual) 35, Lymphocytes % (Manual) 15, Monocytes % (Manual) 20, Eosinophils % (Manual) 1, Band Neutrophils 29, Blood Morphology Comment NORMAL, Sodium Level 137, Potassium Level 3.5L, Chloride Level 106, Carbon Dioxide Level 20L, Anion Gap 11, Blood Urea Nitrogen 7, Creatinine 0.80, Estimat Glomerular Filtration Rate > 60, BUN/Creatinine Ratio 9, Glucose Level 82, Calcium Level 8.2L, Corrected Calcium 8.8, Total Bilirubin 1.8H, Aspartate Amino Transf (AST/SGOT) 12, Alanine Aminotransferase (ALT/SGPT) 11, Alkaline Phosphatase 95, Total Protein 5.8L, Albumin 3.3 Assessment/Plan Assessment/Plan Assessment/Plan Right sided Abd pain Enteritis Partial small bowel obstruction - no transition point, was probably due to inflammation in small bowel Nausea and Vomiting - resolved Hyperbilirubinemia - down slightly Hypokalemia - will replace with IV fluids Pt is still having pain and doesn't seem much better, in fact yesterday afte peggy started requiring IV pain meds. I went over the films with radiologist; he did not see an abscess (no fluid) and believes what they saw was just phlegmon from the inflamed small bowel. I talked to pt today and answered his questions; we are trying to get pain under control, have him eating and then he can get out of here. He was concerned about starting steroids if there was an abscess. I will start some oral medications and he can have the IV shots for breakthrough pain. I will also start him on clears. We also discussed possibly ordering a SBFT if he does not improve. All questions answered to his satisfaction; he just felt like he wasn't getting any information. I told him to have the nurse get a hold of me if he has any other questions. Pt encouraged to ambulate and can chew gum. Will monitor labs. Clinical Quality Measures DVT/VTE Risk/Contraindication: Risk Factor Score Per Nursin RFS Level Per Nursing on Admit: 1=Low/No VTE PPX NILO DEAL DO Jun 13, 2020 12:06
[2020-06-13] MEDS ORDERED: HYDROcodone/APAP 10 MG/325 MG (LORTAB) TAB PO PRN (12:15)
--- NOTE | 2020-06-13 14:26 | NUR ---
SPOKE WITH THE PT TO COMPLETE THE MED REC PT DENIES TAKING ANY PRESCRIPTION OR OTC MEDICATIONS
[2020-06-13 16:00] VITALS: BP 122/69
[2020-06-13 20:00] VITALS: BP 117/65
[2020-06-14] VITALS: BP 105/63
[2020-06-14 04:00] VITALS: BP 111/66
[2020-06-14] MEDS: predniSONE 20 MG TAB PO SCH (06:20)
[2020-06-14] MEDS: NS IV 1000 ML 1,000 ML IV SCH ×2 (06:23→10:29)
[2020-06-14 08:00] VITALS: BP 125/82
--- NOTE | 2020-06-14 09:43 | Progress Note - Surgery ---
Subjective Time Seen by a Provider: 09:09 Subjective/Events-last exam Pt seen and examined, states he is doing much better today; in fact it all started right after the first steroid dose. He states he has had 6 or 7 BM's since we talked yesterday and is still passing gas. He is tolerating clears with no nausea or vomiting. Review of Systems General: No Chills, No Night Sweats Pulmonary: No Dyspnea, No Cough Cardiovascular: No: Chest Pain, Palpitations Gastrointestinal: No: Nausea, Vomiting, Abdominal Pain Objective Exam Vital Signs Date Time Temp Pulse Resp B/P (MAP) Pulse Ox O2 Delivery O2 Flow Rate FiO2 06/14/20 08:00 36.8 83 17 125/82 (96) 97 Room Air 06/14/20 04:00 37.4 85 18 111/66 (81) 98 Room Air 06/14/20 00:00 37.2 86 18 105/63 (77) 98 Room Air 06/13/20 20:00 Room Air 06/13/20 20:00 36.5 83 18 117/65 (82) 95 Room Air 06/13/20 16:00 36.5 103 18 122/69 (86) 94 Room Air 06/13/20 12:00 37.0 106 20 122/57 (78) 96 Room Air I & O 06/14/20 07:00 Intake Total 1280 ml Output Total 2125 ml Balance -845 ml Capillary Refill : Less Than 3 Seconds General Appearance: No Apparent Distress, WD/WN HEENT: Pharynx Normal, Moist Mucous Membranes; No Scleral Icterus (L), No Scleral Icterus (R) Respiratory: Chest Non Tender, Lungs Clear, Normal Breath Sounds, No Accessory Muscle Use, No Respiratory Distress Cardiovascular: Regular Rate, Rhythm, No Murmur Gastrointestinal: soft, tenderness (much better compared to yesterday) Extremity: No Calf Tenderness, No Pedal Edema Results Lab Laboratory Tests 06/13/20 10:06: White Blood Count 6.4, Red Blood Count 4.58, Hemoglobin 13.0L, Hematocrit 39L, Mean Corpuscular Volume 85, Mean Corpuscular Hemoglobin 28, Mean Corpuscular Hemoglobin Concent 34, Red Cell Distribution Width 13.0, Platelet Count 208, Mean Platelet Volume 9.6, Immature Granulocyte % (Auto) 1, Neutrophils (%) (Auto) 64, Lymphocytes (%) (Auto) 13, Monocytes (%) (Auto) 20H, Eosinophils (%) (Auto) 1, Basophils (%) (Auto) 1, Neutrophils # (Auto) 4.1, Lymphocytes # (Auto) 0.8L, Monocytes # (Auto) 1.3H, Eosinophils # (Auto) 0.1, Basophils # (Auto) 0.0, Immature Granulocyte # (Auto) 0.1, Neutrophils % (Manual) 35, Lymphocytes % (Manual) 15, Monocytes % (Manual) 20, Eosinophils % (Manual) 1, Band Neutrophils 29, Blood Morphology Comment NORMAL, Sodium Level 137, Potassium Level 3.5L, Chloride Level 106, Carbon Dioxide Level 20L, Anion Gap 11, Blood Urea Nitrogen 7, Creatinine 0.80, Estimat Glomerular Filtration Rate > 60, BUN/Creatinine Ratio 9, Glucose Level 82, Calcium Level 8.2L, Corrected Calcium 8.8, Total Bilirubin 1.8H, Aspartate Amino Transf (AST/SGOT) 12, Alanine Aminotransferase (ALT/SGPT) 11, Alkaline Phosphatase 95, Total Protein 5.8L, Albumin 3.3 Assessment/Plan Assessment/Plan Assessment/Plan Right sided Abd pain Enteritis - ??crohns Partial small bowel obstruction - resolved (now having flatus and BM) was prob ably due to inflammation in small bowel Nausea and Vomiting - resolved Hyperbilirubinemia Hypokalemia Pt is much improved, tolerating diet and having BM's. Will increase to soft diet, stop IV pain meds and as long as he tolerates that then he can get out of here. I will send him home with a few pain pills, steroids and he will follow up with me in 10-12 days. At that time we can work up his enteritis; to determine if if is Crohn's and possibly start some Mesalamine. Clinical Quality Measures DVT/VTE Risk/Contraindication: Risk Factor Score Per Nursin RFS Level Per Nursing on Admit: 1=Low/No VTE PPX NILO DEAL DO Jun 14, 2020 09:43
--- NOTE | 2020-06-14 10:08 | Discharge Inst-Surgical ---
Discharge Inst-Surgical Depart Medication/Instructions New, Converted or Re-Newed RX: RX Given to Pt/Family Patient Instructions Follow up Appt: Make appointment for first week of June. [phone] Instructions: May shower in 24 hours or tub bath or soaking. Use incentive spirometer at home as directed. No Smoking Symptoms to Report: Appetite Changes, Extremity Discoloration, Numbness/Tingling, Swelling Increased, Bleeding Excessive, Eyesight Changes, Pain Increased, Urine Color Change, Constipation(Persistent), Fever over 101 degree F, Pain/Pressure in chest, Urinating Difficulty, Cough Up/Vomit Blood, Heart Beat Irreg/Pounding, Pa in/Pressure in jaw, Cramps in feet or legs, Lightheadedness, Pain/Pressure in shoulder, Diarrhea(Persistent), Memory Changes Suddenly, Questions/Concerns, Weight gain consecutive days, Dizziness/Fainting, Nausea/Vomiting, Shortness of Breath, Weight gain over 2 pounds If questions or concerns contact your physician Or seek help at emergency department. Activity Activity as Tolerated: Yes Driving Instructions: No Driving/Refer to (while taking pain meds) Diet Discharge Diet: No Restrictions (increase diet slowly) Diet After 24 Hours: Clear Liquid if Nauseous Skin/Wound Care Bathing Instructions: NILO Hernández DO Jun 14, 2020 10:08
[2020-06-14] MEDS ORDERED: OXYC-471 PO (10:11)
[2020-06-14] MEDS ORDERED: PRD20T PO (10:11)
[2020-06-14 11:26] VITALS: BP 117/75
[2020-06-14 13:05] VITALS: BP 117/75
== END 2020-06-14 13:05 | disposition home or self-care (01) | DRG 392 ==
LOC: EDUNIT# 21:38 → ER 21:42 → 4TH 06-12 00:42
PROVIDERS: ADMIT Surgery; ATTEND Surgery
DX: K52.9 Noninfective gastroenteritis and colitis, unspecified (principal); K50.912 Crohn's disease, unspecified, with intestinal obstruction; G89.29 Other chronic pain; M54.9 Dorsalgia, unspecified; E80.6 Other disorders of bilirubin metabolism; E87.6 Hypokalemia; Z90.49 Acquired absence of other specified parts of digestive tract
CPT/HCPCS: 36415; 74018; 74177; 80053; 81000; 83690; 85007; 85025; 85027; 94760

== ENCOUNTER 2020-09-21 13:28 | Emergency (ER) | payer OTHER ==
[~2020-09-21] VITALS: Ht 68.4 cm; Wt 74.8 kg
[~2020-09-21 13:28] MED LIST changes: +OXYC1TAB11 PO; +PRD20T PO
[2020-09-21] MEDS ORDERED: NS IV 1000 ML 1,000 ML IV SCH (13:45)
[2020-09-21] MEDS ORDERED: HYDROmorphone 2 MG/ML VIAL (DILAUDID) IV ONE ×3 (13:45→16:00)
[2020-09-21] MEDS ORDERED: KETOROLAC 30 MG/ML VIAL IVP ONE (13:45)
[2020-09-21 13:50] LABS: BASOPHILS % (AUTO) 0 % (0-10); EOSINOPHILS # (AUTO) 0.1 10^3/uL (0.0-0.3); EOSINOPHILS % (AUTO) 1 % (0-10); HEMATOCRIT 42 % (40-54); HEMOGLOBIN 14.1 g/dL (13.3-17.7); LYMPHOCYTES # (AUTO) 1.1 10^3/uL (1.0-4.0); LYMPHOCYTES % (AUTO) 9 % (12-44); MEAN CORPUSCULAR HEMOGLOBIN 28 pg (25-34); MEAN CORPUSCULAR HGB CONC 34 g/dL (32-36); MEAN CORPUSCULAR VOLUME 83 fL (80-99); MEAN PLATELET VOLUME 9.1 fL (9.0-12.2); MONOCYTES # (AUTO) 1.2 10^3/uL (0.0-1.0); MONOCYTES % (AUTO) 10 % (0-12); NEUTROPHILS # (AUTO) 9.5 10^3/uL (1.8-7.8); NEUTROPHILS % (AUTO) 79 % (42-75); PLATELET COUNT 345 10^3/uL (130-400)
--- NOTE | 2020-09-21 14:02 | ED Abdominal Pain ---
General Chief Complaint: Abdominal/GI Problems Stated Complaint: ABD PAIN, POSSIBLE HERNIA Nursing Triage Note: patient states last thursday/thu started having abd pain, states thursday noticed a "bump", sent from dr rivas office today. Sepsis Screen: No Definite Risk Source of Information: Patient Exam Limitations: No Limitations History of Present Illness Date Seen by Provider: Sep 21, 2020 Time Seen by Provider: 13:59 Initial Comments yes to ER with reports of incisional pain. 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 He underwent small bowel resection with extended right hemicolectomy and partial sigmoidectomy as he had enterovesicular and enterocutaneous fistulas. The surgeries were done at the [facility] in 2013. Starting 9-10 days ago he noticed some pain near the periumbilical incision. Developed a "bump" to this area about 6 days ago. Pain has progressed since then. Typically has a bowel movement every couple of hours due to his Crohn's disease/bowel resections. However he is not had a bowel movement in about 24 hours. No nausea or vomiting. No fevers or chills. He went to Dr. Rivas's office and was referred to the emergency room. He was seen by primary care last week for a rash on upper extremities thought possibly to be tickborne illness (though those tests --RMSF/ehrlichiosis/Lyme --have come back negativ. He was empirically started on doxycycline which he is still on. Timing/Duration: 1 Week, Getting Worse Severity/Quality: Moderate, Severe Location: Periumbilical Radiation: No Radiation Activities at Onset: None Allergies and Home Medications Allergies Coded Allergies: naproxen (Unverified Allergy, Unknown, 09/18/13) Uncoded Allergies: ADVANCED FORM OF PCN (Allergy, Mild, 09/18/13) Home Medications Oxycodone HCl/Acetaminophen 1 Each Tablet, 1 EACH PO Q4H PRN for PAIN-SEVERE Prescribed by: NILO DEAL on 06/14/20 1011 Prednisone 20 Mg Tab, 40 MG PO DAILY@0700 Prescribed by: NILO DEAL on 06/14/20 1011 Patient Home Medication List Home Medication List Reviewed: Yes Review of Systems Review of Systems Constitutional: see HPI; No chills, No fever EENTM: No Symptoms Reported Respiratory: No Symptoms Reported Cardiovascular: No Symptoms Reported Gastrointestinal: See HPI, Abdominal Pain, Constipated Genitourinary: No Symptoms Reported Musculoskeletal: no symptoms reported Skin: no symptoms reported Psychiatric/Neurological: No Symptoms Reported Endocrine: No Symptoms Reported Hematologic/Lymphatic: No Symptoms Reported Past [id number] Hx Patient Social History Type Used: Electronic/Vapor 2nd Hand Smoke Exposure: No Recent Infectious Disease Expo: No Immunizations Up To Date Tetanus Booster (TDap): Less than 5yrs PED Vaccines UTD: Yes Date of Pneumonia Vaccine: Apr 25, 2020 Date of Influenza Vaccine: Apr 25, 2020 Past Medical History Surgeries: Yes (APPY/ABSCESS 2011, "TRIPLE COLON RESECTION" 10/2013, PICC LINE/REMOVED) Abdominal, Appendectomy, Bowel Surgery, Gallbladder Respiratory: No Cardiac: Yes (IRREGULAR HEART RATE AT TIMES. EX;DURING STRESS) Neurological: No Reproductive Disorders: No Genitourinary: No Gastrointestinal: Yes (INTESTINAL PARASITE/DASHA 2009, APPY/ABSCESS, TRIPLE BOWEL RESECTION 2013) Crohns Disease, Ulcer Musculoskeletal: Yes (R/T CROHN'S) Chronic Back Pain Endocrine: No HEENT: No Loss of Vision: Denies Hearing Impairment: Denies Cancer: No Psychosocial: No Integumentary: No Blood Disorders: No Adverse Reaction/Blood Tranf: No Family Medical History Patient reports no known family medical history. No Pertinent Family Hx, Other Conditions/Hx Physical Exam Vital Signs Vital Signs - First Documented 09/21/20 13:38 Temp 36.7 Pulse 103 Resp 20 B/P (MAP) 125/81 (96) Pulse Ox 99 O2 Delivery Room Air Capillary Refill : Less Than 3 Seconds Height/Weight/BMI Height: 5'7" Weight: 155lbs. oz. 70.399228xx; 159.00 BMI Method:Stated General Appearance: WD/WN, no apparent distress HEENT: PERRL/EOMI, normal ENT inspection Respiratory: no respiratory distress, no accessory muscle use Cardiovascular: regular rate, rhythm, no murmur Gastrointestinal: normal bowel sounds, soft, tenderness (There is a palpable bulge at the incision near the umbilicus. There is a bit of erythema overlying this. There is no punctum or open or draining wound.) Extremities: normal range of motion, non-tender Neurologic/Psychiatric: alert, normal mood/affect, oriented x 3 Skin: normal color Progress/Results/Core Measures Results/Orders Lab Results Laboratory Tests Test 09/21/20 13:40 09/21/20 16:37 Range/Units White Blood Count 12.0 H 4.3-11.0 10^3/uL Red Blood Count 5.03 4.30-5.52 10^6/uL Hemoglobin 14.1 13.3-17.7 g/dL Hematocrit 42 40-54 % Mean Corpuscular Volume 83 80-99 fL Mean Corpuscular Hemoglobin 28 25-34 pg Mean Corpuscular Hemoglobin Concent 34 32-36 g/dL Red Cell Distribution Width 12.4 10.0-14.5 % Platelet Count 345 130-400 10^3/uL Mean Platelet Volume 9.1 9.0-12.2 fL Immature Granulocyte % (Auto) 1 % Neutrophils (%) (Auto) 79 H 42-75 % Lymphocytes (%) (Auto) 9 L 12-44 % Monocytes (%) (Auto) 10 0-12 % Eosinophils (%) (Auto) 1 0-10 % Basophils (%) (Auto) 0 0-10 % Neutrophils # (Auto) 9.5 H 1.8-7.8 10^3/uL Lymphocytes # (Auto) 1.1 1.0-4.0 10^3/uL Monocytes # (Auto) 1.2 H 0.0-1.0 10^3/uL Eosinophils # (Auto) 0.1 0.0-0.3 10^3/uL Basophils # (Auto) 0.0 0.0-0.1 10^3/uL Immature Granulocyte # (Auto) 0.1 0.0-0.1 10^3/uL Sodium Level 139 135-145 MMOL/L Potassium Level 3.6 3.6-5.0 MMOL/L Chloride Level 102 98-107 MMOL/L Carbon Dioxide Level 23 21-32 MMOL/L Anion Gap 14 5-14 MMOL/L Blood Urea Nitrogen 11 7-18 MG/DL Creatinine 1.03 0.60-1.30 MG/DL Estimat Glomerular Filtration Rate > 60 BUN/Creatinine Ratio 11 Glucose Level 106 H 70-105 MG/DL Calcium Level 9.1 8.5-10.1 MG/DL Corrected Calcium 9.3 8.5-10.1 MG/DL Total Bilirubin 1.3 H 0.1-1.0 MG/DL Aspartate Amino Transf (AST/SGOT) 12 5-34 U/L Alanine Aminotransferase (ALT/SGPT) 13 0-55 U/L Alkaline Phosphatase 91 40-136 U/L C-Reactive Protein High Sensitivity 6.87 H 0.00-0.50 MG/DL Total Protein 7.2 6.4-8.2 GM/DL Albumin 3.8 3.2-4.5 GM/DL Urine Color YELLOW Urine Clarity CLEAR Urine pH 5.5 5-9 Urine Specific G[place]rie <=1.005 1.016-1.022 Urine Protein NEGATIVE NEGATIVE Urine Glucose (UA) NEGATIVE NEGATIVE Urine Ketones NEGATIVE NEGATIVE Urine Nitrite NEGATIVE NEGATIVE Urine Bilirubin NEGATIVE NEGATIVE Urine Urobilinogen 0.2 < = 1.0 MG/DL Urine Leukocyte Esterase NEGATIVE NEGATIVE Urine RBC (Auto) NEGATIVE NEGATIVE Urine RBC NONE /HPF Urine WBC 0-2 /HPF Urine Squamous Epithelial Cells NONE /HPF Urine Crystals NONE /LPF Urine Bacteria NEGATIVE /HPF Urine Casts NONE /LPF Urine Mucus NEGATIVE /LPF Urine Culture Indicated NO My Orders Orders - [employer] Cbc With Automated Diff (09/21/20 13:42) Comprehensive Metabolic Panel (09/21/20 13:42) Ua Culture If Indicated (09/21/20 13:42) Ed Iv/Invasive Line Start (09/21/20 13:42) Ct Abdomen/Pelvis W (09/21/20 13:42) Ns Iv 1000 Ml (Sodium Chloride 0.9%) (09/21/20 13:45) Ketorolac Injection (Toradol Injection) (09/21/20 13:45) Hydromorphone Injection (Dilaudid Inject (09/21/20 13:45) Hydromorphone Injection (Dilaudid Inject (09/21/20 14:00) Hs C Reactive Protein (09/21/20 14:06) Iohexol Injection (Omnipaque 350 Mg/Ml 1 (09/21/20 15:00) Received Contrast (Hold Metformin- Contr (09/21/20 15:00) Sodium Chloride Flush (Catheter Flush Sy (09/21/20 15:00) Ns (Ivpb) (Sodium Chloride 0.9% Ivpb Bag (09/21/20 15:00) Diatrizoate Meglum/Sodium 37% (Gastrogra (4/2/21 15:00) Hydromorphone Injection (Dilaudid Inject (09/21/20 16:00) Ceftriaxone For Iv Use (Rocephin For I (09/21/20 16:15) Metronidazole 500mg/100ml Ivpb (Flagyl 5 (09/21/20 16:15) Medications Given in ED Current Medications Medications Dose Ordered Sig/Juana Route Start Time Stop Time Status Last Admin Dose Admin Ceftriaxone Sodium 1000 mg/ Sterile Water 10 ml @ 200 mls/hr ONCE ONCE IV 09/21/20 16:15 09/21/20 16:17 DC 09/21/20 16:28 200 MLS/HR Diatrizoate Meglum/ Diatrizoate Sod 120 ml ONCE ONCE PO 09/21/20 15:00 09/21/20 15:01 DC 09/21/20 15:18 40 ML Hydromorphone HCl 0.5 mg ONCE ONCE IV 09/21/20 13:45 09/21/20 13:46 DC 09/21/20 13:52 0.5 MG Hydromorphone HCl 1 mg ONCE ONCE IV 09/21/20 16:00 09/21/20 16:01 DC 09/21/20 15:53 1 MG Iohexol 100 ml ONCE ONCE IV 09/21/20 15:00 09/21/20 15:01 DC 09/21/20 15:17 94 ML Ketorolac Tromethamine 15 mg ONCE ONCE IVP 09/21/20 13:45 09/21/20 13:46 DC 09/21/20 13:52 15 MG Metronidazole 100 ml @ 100 mls/hr ONCE ONCE IV 09/21/20 16:15 09/21/20 17:14 09/21/20 16:28 100 MLS/HR Sodium Chloride 10 ml NEEDED PRN IV 09/21/20 15:00 09/21/20 15:17 10 ML Sodium Chloride 100 ml ONCE ONCE IV 09/21/20 15:00 09/21/20 15:01 DC 09/21/20 15:17 80 ML Vital Signs/I&O 09/21/20 13:38 Temp 36.7 Pulse 103 Resp 20 B/P (MAP) 125/81 (96) Pulse Ox 99 O2 Delivery Room Air Blood Pressure Mean: 96 Diagnostic Imaging Diagonstic Imaging: CT Comments NAME: JACK SMITH [facility] REC#: [id number] PT STATUS: REG ER : 1985 PHYSICIAN: NANCY BRUSH APRN ADMIT DATE: 09/21/20/ER Draft Date of Exam:09/21/20 CT ABDOMEN/PELVIS W PROCEDURE: CT abdomen and pelvis with contrast. TECHNIQUE: Multiple contiguous axial images were obtained through the abdomen and pelvis after administration of intravenous contrast. Auto Exposure Controls were utilized during the CT exam to meet ALARA standards for radiation dose reduction. All CT scans use one or more of the following dose optimizing techniques: automated exposure control, MA and/or KvP adjustment based on patient size and exam type or iterative reconstruction. INDICATION: Previous abdominal infections. Periumbilical pain. COMPARISON: Abdominal and pelvic CT 06/11/2020. In addition to routine post IV contrast-enhanced CT abdomen and pelvis, additional images were placed with the patient prone scanning through the pelvis. FINDINGS: Some midline periumbilical rim-enhancing gas/fluid collection presumed abscess measuring 2 cm. Inferiorly and just deep to the abdominal wall is a thick-walled fluid collection that abuts the a distorted and thickened fundal aspect of the urinary bladder. That collection measured 4.0 x 3.7 cm and with prone positioning showed no opacification with bladder contrast medium. It does not appear to be in communication with the bladder itself. Bladder thickening and distortion likely inflamed on a secondary basis. The abdominal bowel loops in the right abdomen deep to the abdominal wall are abnormally thickened and showed mucosal hyperenhancement to the level of an anastomosis presumed actively involved by either infectious enteritis or inflammatory bowel disease. 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 There is some colonic constipation without bowel obstruction. The spleen is mildly enlarged but nonfocal. The liver is unremarkable. The bile ducts are nondilated. The gallbladder is surgically absent. The pancreas is negative. The unobstructed kidneys appeared normal. The aortoiliac and mesenteric vessels are nonaneurysmal. IMPRESSION: 1. Likely segmental enteritis. 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 This is in close proximity to the distorted and thickened fundus of the urinary bladder but showed no appreciable intraluminal communication with bladder contrast. 2. Colonic constipation without bowel obstruction. No acute urinary tract or hepatobiliary abnormality. Chronic mild splenomegaly, nonfocal. Dictated on workstation # [id number] Dict: 09/21/20 1521 Trans: 09/21/20 1600 [facility] [id number] Interpreted by: ONEL SANCHEZ Electronically signed by: Departure Communication (Admissions) 1618-images have been clouded to [facility] and I have spoken with the transfer center. The patient has received 1 L of IV fluids here, getting Rocephin 1 g IV plus metronidazole 500 mg IV. Awaiting a callback from the [facility]. Given his extensive surgical history done at the [facility] with a multitude of anastomoses it would be best to tr ansfer him back to the [facility]. This is also the patient's preference. 1704-Dr. Weston Elizondo has accepted the patient to the [facility]. He is reliable. He is going to have a friend drive him up there. His vitals are stable for this. Impression Primary Impression: Enterocutaneous fistula Additional Impression: Intra-abdominal abscess Disposition: XF SHT-TRM HOSP Condition: Stable Transfer Transfer Reason: Exceeds level of care Time Spoke to Accepting Phy: 16:20 Departure-Patient Inst. Referrals: AKHIL RIVAS MD (PCP/Family) Primary Care Physician NANCY BRUSH APRN Sep 21, 2020 14:01
[2020-09-21 14:16] LABS: ALANINE AMINOTRANSFERASE 13 U/L (0-55); ALBUMIN 3.8 GM/DL (3.2-4.5); ALKALINE PHOSPHATASE 91 U/L (40-136); BILIRUBIN,TOTAL 1.3 MG/DL (0.1-1.0); BUN/CREATININE RATIO 11; CALCIUM 9.1 MG/DL (8.5-10.1); CARBON DIOXIDE 23 MMOL/L (21-32); CHLORIDE 102 MMOL/L (98-107); CREATININE SERUM 1.03 MG/DL (0.60-1.30); GFR ESTIMATED > 60; GLUCOSE 106 MG/DL (70-105); POTASSIUM 3.6 MMOL/L (3.6-5.0); SODIUM 139 MMOL/L (135-145); TOTAL PROTEIN 7.2 GM/DL (6.4-8.2)
[2020-09-21] MEDS ORDERED: NS 100 ML (IVPB) BAG IV ONE (15:00)
[2020-09-21] MEDS ORDERED: HOLD METFORMIN - RECEIVED CONTRAST 20 ML VIAL IV SCH (15:00)
[2020-09-21] MEDS ORDERED: IOHEXOL 350 MG/ML 100 ML (OMNIPAQUE 350) VIAL IV ONE (15:00)
[2020-09-21] MEDS ORDERED: DIATRIZOATE MEGLUM/SODIUM 37% 120 ML (GASTROGRAFIN) PO ONE (15:00)
[2020-09-21] MEDS ORDERED: CATHETER FLUSH 10 ML SYR IV PRN (15:00)
--- NOTE | 2020-09-21 16:00 | Diagnostic Imaging Report ---
PROCEDURE: CT abdomen and pelvis with contrast. TECHNIQUE: Multiple contiguous axial images were obtained through the abdomen and pelvis after administration of intravenous contrast. Auto Exposure Controls were utilized during the CT exam to meet ALARA standards for radiation dose reduction. All CT scans use one or more of the following dose optimizing techniques: automated exposure control, MA and/or KvP adjustment based on patient size and exam type or iterative reconstruction. INDICATION: Previous abdominal infections. Periumbilical pain. COMPARISON: Abdominal and pelvic CT 06/11/2020. In addition to routine post IV contrast-enhanced CT abdomen and pelvis, additional images were placed with the patient prone scanning through the pelvis. FINDINGS: Some midline periumbilical rim-enhancing gas/fluid collection presumed abscess measuring 2 cm. Inferiorly and just deep to the abdominal wall is a thick-walled fluid collection that abuts the a distorted and thickened fundal aspect of the urinary bladder. That collection measured 4.0 x 3.7 cm and with prone positioning showed no opacification with bladder contrast medium. It does not appear to be in communication with the bladder itself. Bladder thickening and distortion likely inflamed on a secondary basis. The abdominal bowel loops in the right abdomen deep to the abdominal wall are abnormally thickened and showed mucosal hyperenhancement to the level of an anastomosis presumed actively involved by either infectious enteritis or inflammatory bowel disease. 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 There is some colonic constipation without bowel obstruction. The spleen is mildly enlarged but nonfocal. The liver is unremarkable. The bile ducts are nondilated. The gallbladder is surgically absent. The pancreas is negative. The unobstructed kidneys appeared normal. The aortoiliac and mesenteric vessels are nonaneurysmal. IMPRESSION: 1. Likely segmental enteritis. 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 This is in close proximity to the distorted and thickened fundus of the urinary bladder but showed no appreciable intraluminal communication with bladder contrast. 2. Colonic constipation without bowel obstruction. No acute urinary tract or hepatobiliary abnormality. Chronic mild splenomegaly, nonfocal. Dictated by: Dictated on workstation # [id number]
[2020-09-21] MEDS ORDERED: metroNIDAZOLE 500MG/100ML IVPB 100 ML IV ONE (16:15)
[2020-09-21] MEDS ORDERED: cefTRIAXone FOR IV USE 1,000 MG in WATER (STERILE) FOR INJECTION 10 ML IV ONE (16:15)
[2020-09-21 16:44] LABS: BILIRUBIN,URINE NEGATIVE (NEGATIVE); CLARITY,URINE CLEAR; COLOR,URINE YELLOW; GLUCOSE, URINE (UA) NEGATIVE (NEGATIVE); KETONES,URINE NEGATIVE (NEGATIVE); LEUKOCYTE ESTERASE ,URINE NEGATIVE (NEGATIVE); NITRITE,URINE NEGATIVE (NEGATIVE); PH,URINE 5.5 (5-9); PROTEIN,URINE NEGATIVE (NEGATIVE)
[2020-09-21 16:52] LABS: BACTERIA,URINE NEGATIVE /HPF; WBC,URINE 0-2 /HPF
[2020-09-21] MEDS ORDERED: oxyCODONE/APAP 5/325MG (PERCOCET 5) TABLET PO ONE (17:15)
[2020-09-21 17:29] VITALS: BP 110/66
== END 2020-09-21 17:30 | disposition short-term general hospital (02) ==
LOC: EDUNIT# 13:28 → ER 13:30
DX: K63.2 Fistula of intestine (principal); K65.1 Peritoneal abscess; Z87.19 Personal history of other diseases of the digestive system; Z79.2 Long term (current) use of antibiotics; Z79.52 Long term (current) use of systemic steroids; Z88.5 Allergy status to narcotic agent; Z88.0 Allergy status to penicillin
CPT/HCPCS: 36415; 74177; 80053; 81000; 85025; 86141; 96361; 96365; 96375; 96376

== ENCOUNTER → 2020-10-10 | Outpatient (CLI) | payer OTHER ==
--- NOTE | 2020-10-10 20:28 | Diagnostic Imaging Report ---
PROCEDURE: CT abdomen and pelvis with contrast. TECHNIQUE: Multiple contiguous axial images were obtained through the abdomen and pelvis after administration of intravenous contrast. Auto Exposure Controls were utilized during the CT exam to meet ALARA standards for radiation dose reduction. All CT scans use one or more of the following dose optimizing techniques: automated exposure control, MA and/or KvP adjustment based on patient size and exam type or iterative reconstruction. DATE: October 10, 2020. COMPARISON: CT abdomen and pelvis September 21, 2020. INDICATION: 35-year-old male, history of intestinal fistula. Abdominal pain. FINDINGS: The visualized portions of the lung bases are clear. The heart is not enlarged. There is no pericardial effusion. The liver is unremarkable in size and contour. There is no identified liver lesion. The main, right and left portal veins are patent. The patient is status post cholecystectomy. There is no identified intrahepatic or extrahepatic bile duct dilation. The main pancreatic duct is not abnormally dilated. Unremarkable appearance of the pancreatic parenchyma. The spleen is normal in size. The adrenal glands are unremarkable. Unremarkable appearance of the renal parenchyma. The urinary collecting systems are not distended. There is no identified renal or ureteral stone. Urinary bladder is unremarkable in appearance. There is mucosal enhancement of the rectum contiguously extending to the level of the distal transverse colon. The patient is status post partial right colectomy. There is abnormal wall thickening of the distal ileum including abnormal mucosal enhancement well illustrated on axial image 52 and adjacent sequential images. There is no free intraperitoneal air. There is no sizable volume free pelvic fluid. There is abnormal soft tissue attenuation with central low attenuation in the anterior abdominal wall subcutaneous tissues measuring 2.0 x 2.3 cm in axial extent which is at site of previously noted gas containing fluid collection and prior probable fistula tract. The gas containing fluid collection previously measured approximately 2.5 x 2.2 cm in axial dimension. There is no identified abnormally enlarged lymph node in the abdomen or pelvis meeting CT size criteria for adenopathy. There is no identified acute bony abnormality. The sacroiliac joints are unremarkable in appearance. IMPRESSION: CT abdomen and pelvis: 1. Abnormal wall thickening of the distal ileum as well as abnormal mucosal enhancement extending contiguously from the level of the rectum to the distal transverse colon. This most likely relates to an inflammatory or infectious colitis. Crohn's disease would be the favored differential diagnostic consideration. Recommend correlation with history. 2. At the site of previously noted gas containing fluid collection in the anterior abdominal wall subcutaneous tissues and probably involving the anterior abdominal wall musculature, there is currently abnormal soft tissue attenuation and a small focus of low attenuation although no clear internal fluid or gas. This may relate to incomplete resolution of prior abscess. The previously noted fistula is not gas-filled or fluid-filled as on prior exam of September 21, 2020. Dictated by: Dictated on workstation # [id number]
== END ==
LOC: RAD 16:22
PROVIDERS: ATTEND Nurse Practitioner Family
DX: K65.1 Peritoneal abscess (principal); K63.89 Other specified diseases of intestine; K63.2 Fistula of intestine
CPT/HCPCS: 74177

== ENCOUNTER → 2020-11-08 | Outpatient (CLI) | payer OTHER ==
--- NOTE | 2020-11-09 08:50 | Diagnostic Imaging Report ---
INDICATION: Crohn's disease and with questionable vesicocutaneous fistula. Correlation is made with prior CT from 10/10/2020. Precontrast axial imaging through the pelvis was performed. Next, a Joy catheter was placed and the bladder was filled with Cystografin contrast. Axial imaging through abdomen and pelvis was then performed. Next, the Joy catheter was removed and the patient voided. Postvoid CT axial imaging through abdomen and pelvis was then performed. Sagittal and coronal reformations were performed. There appear to be postsurgical changes from right hemicolectomy. The bladder is completely decompressed on the precontrast images. No free fluid or fluid collection is identified. There is thickening in the anterior abdominal wall midline. No abdominal wall fluid collection is identified. The CT cystogram images demonstrate complete distention of the bladder with contrast. No definite abnormal communication of contrast from the bladder is identified. No definite fistula to the anterior abdominal wall is seen. There is no abnormally opacified bowel loops to suggest vesicle enteric fistula. Postvoid imaging demonstrates complete emptying of the urinary bladder. Again, no abnormal extravesical contrast collection is seen to suggest fistula formation. No contrast in the bowel loops or within the anterior abdominal wall is identified. There is a segment of wall thickening involving small bowel loop in the right lower quadrant, likely distal small bowel just proximal to the anastomosis. This may be chronic as no significant adjacent stranding in the fat is identified. There are several mildly prominent lymph nodes in the mesentery and right abdomen. IMPRESSION: 1. Postsurgical changes of apparent right hemicolectomy. Distal small bowel is thick-walled and could be chronic. There is some likely reactive lymphadenopathy in the right lower quadrant. 2. No definite vesicoenteric or vesical cutaneous fistula is identified on this study. No abnormal fluid collections are identified to suggest abscess formation. Dictated by: Dictated on workstation # [id number]
== END ==
LOC: RAD 15:17
PROVIDERS: ATTEND Family Medicine
DX: K50.90 Crohn's disease, unspecified, without complications (principal)
CPT/HCPCS: 72192

== ENCOUNTER 2021-05-09 14:24 | Inpatient (IN) | payer OTHER ==
[~2021-05-09] VITALS: Ht 170.2 cm; Wt 69.0 kg
[2021-05-09] MEDS ORDERED: ONDANSETRON 4 MG/2 ML (SDV) Z0FRAN IV STA (14:52)
[2021-05-09] MEDS ORDERED: metroNIDAZOLE 500MG/100ML IVPB 100 ML IV ONE (15:00)
[2021-05-09] MEDS ORDERED: HOLD METFORMIN - RECEIVED CONTRAST 20 ML VIAL IV SCH (15:00)
[2021-05-09] MEDS ORDERED: CATHETER FLUSH 10 ML SYR IV PRN ×2 (15:00→19:15)
[2021-05-09] MEDS ORDERED: IOHEXOL 350 MG/ML 100 ML (OMNIPAQUE 350) VIAL IV ONE (15:00)
[2021-05-09] MEDS ORDERED: NS IV 1000 ML 1,000 ML IV SCH (15:00)
[2021-05-09] MEDS ORDERED: cefTRIAXone 1 GM PRE-MIX 50 ML IV ONE (15:00)
[2021-05-09] MEDS ORDERED: NS 100 ML (IVPB) BAG IV ONE (15:00)
[2021-05-09] MEDS ORDERED: HYDROmorphone 2 MG/ML VIAL (DILAUDID) IV ONE (15:00)
[2021-05-09] MEDS ORDERED: NS IV 1000 ML 1,000 ML IV ONE (15:00)
--- NOTE | 2021-05-09 15:00 | ED Abdominal Pain ---
General Chief Complaint: Abdominal/GI Problems Stated Complaint: BLOCKED BOWEL Nursing Triage Note: PT AMB TO [facility] WITH COMPLAINT OF ABD PAIN. 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 STATES HAS BEEN FOLLOWING A SURGEON IN [place]. Source of Information: Patient Exam Limitations: No Limitations History of Present Illness Date Seen by Provider: May 09, 2021 Time Seen by Provider: 14:44 Initial Comments Patient to the ER by private conveyance with chief complaint that he is having some midepigastric abdominal pain 7-8 out of 10 with waves up to 10 out of 10. Is a history of Crohn's disease that started with some kind of a parasitic infection and has resulted in multiple small and large bowel resections. He typically has 8 bowel movements a day and has had 1 bowel movement over 36 hours ago. He feels like he has a bowel obstruction. 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 He says today it has been putting out quite a bit of output. He typically receives his care and all his surgeons are at [facility] in [place] however he had to come here for the [employer] and about prison down he started getting sick, having severe abdom inal pain nausea and a fever of 102.5. He has not taken any antipyretics. Allergies and Home Medications Allergies Coded Allergies: naproxen (Unverified Allergy, Unknown, 09/18/13) Uncoded Allergies: ADVANCED FORM OF PCN (Allergy, Mild, 09/18/13) Patient Home Medication List Home Medication List Reviewed: Yes Oxycodone HCl/Acetaminophen (Oxycodone-Acetaminophen 5-325) 1 Each Tablet, 1 EACH PO Q4H PRN for PAIN-SEVERE Prescribed by: NILO DEAL on 06/14/20 1011 Prednisone (Prednisone) 20 Mg Tab, 40 MG PO DAILY@0700 Prescribed by: NILO DEAL on 06/14/20 1011 Review of Systems Review of Systems Constitutional: No chills, No diaphoresis EENTM: No Blurred Vision, No Double Vision Respiratory: Denies Cough, Denies Shortness of Air Cardiovascular: Denies Chest Pain, Denies Lightheadedness Gastrointestinal: See HPI; Denies Abdomen Distended; Abdominal Pain, Constipated; Denies Diarrhea; Nausea, Poor Fluid Intake; Denies Vomiting Genitourinary: Denies Burning, Denies Discharge Musculoskeletal: No back pain, No joint pain Skin: No change in color, No pruritus, No rash Psychiatric/Neurological: Denies Headache, Denies Numbness All Other Systems Reviewed Negative Unless Noted: Yes Past Gghhkjd-Fhvvqb-Hvimti Hx Patient Social History Tobacco Use?: Yes Tobacco type used: Cigarettes Smoking Status: Current Everyday Smoker Use of E-Cig and/or Vaping dev: No Substance use?: No Alcohol Use?: Yes Alcohol Frequency: Once in a while Pt feels they are or have been: No Immunizations Up To Date Tetanus Booster (TDap): Less than 5yrs PED Vaccines UTD: Yes First/Initial COVID19 Vaccinat: MARCH 2021 COVID19 Vaccine Chocolate Molder: MODERNA Past Medical History Surgeries: Yes (APPY/ABSCESS 2011, "TRIPLE COLON RESECTION" 10/2013, PICC LINE/REMOVED) Abdominal, Appendectomy, Bowel Surgery, Gallbladder Respiratory: No Cardiac: Yes (IRREGULAR HEART RATE AT TIMES. EX;DURING STRESS) Neurological: No Reproductive Disorders: No Genitourinary: No Gastrointestinal: Yes (INTESTINAL PARASITE/ORDGER 2009, APPY/ABSCESS, TRIPLE BOWEL RESECTION 2013) Crohns Disease, Ulcer Musculoskeletal: Yes (R/T CROHN'S) Chronic Back Pain Endocrine: No HEENT: No Loss of Vision: Denies Hearing Impairment: Denies Cancer: No Psychosocial: No Integumentary: No Blood Disorders: No Adverse Reaction/Blood Tranf: No Family Medical History Patient reports no known family medical history. No Pertinent Family Hx, Other Conditions/Hx Physical Exam Vital Signs Vital Signs - First Documented 05/09/21 14:36 Pulse 120 Resp 20 B/P (MAP) 145/96 (112) Pulse Ox 98 O2 Delivery Room Air Capillary Refill : Less Than 3 Seconds Height/Weight/BMI Height: 5'7" Weight: 155lbs. oz. 70.150250iy; 24.00 BMI Method:Stated General Appearance: WD/WN, moderate distress HEENT: PERRL/EOMI, pharynx normal Neck: full range of motion, supple, normal inspection Respiratory: lungs clear, normal breath sounds, no respiratory distress, no accessory muscle use Cardiovascular: normal peripheral pulses, regular rate, rhythm Peripheral Pulses: 2+ Radial Pulses (R), 2+ Radial Pulses (L) Gastrointestinal: No normal bowel sounds (Slow); no organomegaly, guarding, tenderness (All 4 quadrants with out erythema) Extremities: normal range of motion, normal inspection, normal capillary refill Neurologic/Psychiatric: alert, oriented x 3, other (Anxious affect) Skin: normal color, diaphoresis (Mild) Focused Exam Lactate Level 05/09/21 15:00: Lactic Acid Level 1.90 Lactic Acid Level Laboratory Tests Test 05/09/21 15:00 Lactic Acid Level 1.90 MMOL/L (0.50-2.00) Progress/Results/Core Measures Results/Orders Lab Results Laboratory Tests Test 05/09/21 14:43 05/09/21 15:00 Range/Units White Blood Count 11.8 H 4.3-11.0 10^3/uL Red Blood Count 6.11 H 4.30-5.52 10^6/uL Hemoglobin 17.1 13.3-17.7 g/dL Hematocrit 49 40-54 % Mean Corpuscular Volume 80 80-99 fL Mean Corpuscular Hemoglobin 28 25-34 pg Mean Corpuscular Hemoglobin Concent 35 32-36 g/dL Red Cell Distribution Width 14.0 10.0-14.5 % Platelet Count 337 130-400 10^3/uL Mean Platelet Volume 9.2 9.0-12.2 fL Immature Granulocyte % (Auto) 0 % Neutrophils (%) (Auto) 74 42-75 % Lymphocytes (%) (Auto) 12 12-44 % Monocytes (%) (Auto) 13 H 0-12 % Eosinophils (%) (Auto) 1 0-10 % Basophils (%) (Auto) 0 0-10 % Neutrophils # (Auto) 8.8 H 1.8-7.8 X 10^3 Lymphocytes # (Auto) 1.4 1.0-4.0 X 10^3 Monocytes # (Auto) 1.5 H 0.0-1.0 X 10^3 Eosinophils # (Auto) 0.1 0.0-0.3 10^3/uL Basophils # (Auto) 0.0 0.0-0.1 10^3/uL Immature Granulocyte # (Auto) 0.0 0.0-0.1 10^3/uL Prothrombin Time 14.3 12.2-14.7 SEC INR Comment 1.1 0.8-1.4 Activated Partial Thromboplast Time 31 24-35 SEC Sodium Level 137 135-145 MMOL/L Potassium Level 3.5 L 3.6-5.0 MMOL/L Chloride Level 104 98-107 MMOL/L Carbon Dioxide Level 17 L 21-32 MMOL/L Anion Gap 16 H 5-14 MMOL/L Blood Urea Nitrogen 14 7-18 MG/DL Creatinine 1.23 0.60-1.30 MG/DL Estimat Glomerular Filtration Rate 68 BUN/Creatinine Ratio 11 Glucose Level 116 H 70-105 MG/DL Calcium Level 9.6 8.5-10.1 MG/DL Corrected Calcium 9.3 8.5-10.1 MG/DL Total Bilirubin 3.6 H 0.1-1.0 MG/DL Aspartate Amino Transf (AST/SGOT) 15 5-34 U/L Alanine Aminotransferase (ALT/SGPT) 12 0-55 U/L Alkaline Phosphatase 130 40-136 U/L Total Protein 7.9 6.4-8.2 GM/DL Albumin 4.4 3.2-4.5 GM/DL Lactic Acid Level 1.90 0.50-2.00 MMOL/L My Orders Orders - AYDEN BAILEY Ed Iv/Invasive Line Start (05/09/21 14:52) Ns Iv 1000 Ml (Sodium Chloride 0.9%) (05/09/21 15:00) Ns Iv 1000 Ml (Sodium Chloride 0.9%) (05/09/21 15:00) Cbc With Automated Diff (05/09/21 14:52) Comprehensive Metabolic Panel (05/09/21 14:52) Blood Culture (05/09/21 14:52) Urinalysis (05/09/21 14:52) Urine Culture (05/09/21 14:52) Protime With Inr (05/09/21 14:52) Partial Thromboplastin Time (05/09/21 14:52) Chest 1 View, Ap/Pa Only (05/09/21 14:52) Ed Iv/Invasive Line Start (05/09/21 14:52) Ed Iv/Invasive Line Start (05/09/21 14:52) Vital Signs Adult Sepsis Patie Q15M (05/09/21 14:52) Ondansetron Injection (Zofran Injectio (05/09/21 14:52) O2 (05/09/21 14:52) Remove Rings In Anticipation O (05/09/21 14:52) Lactic Acid Analyzer (05/09/21 14:52) Ceftriaxone 1 Gm Pre-Mix (Rocephin 1 Gm (05/09/21 15:00) Metronidazole 500mg/100ml Ivpb (Flagyl 5 (05/09/21 15:00) Hydromorphone Injection (Dilaudid Inject (05/09/21 15:00) Ct Abdomen/Pelvis W (05/09/21 14:52) Iohexol Injection (Omnipaque 350 Mg/Ml 1 (05/09/21 15:00) Received Contrast (Hold Metformin- Contr (05/09/21 15:00) Ns (Ivpb) (Sodium Chloride 0.9% Ivpb Bag (05/09/21 15:00) Sodium Chloride Flush (Catheter Flush Sy (05/09/21 15:00) Diatrizoate Meglum/Sodium 37% (Gastrogra (05/09/21 16:30) Medications Given in ED Current Medications Medications Dose Ordered Sig/Juana Route Start Time Stop Time Status Last Admin Dose Admin Ceftriaxone Sodium/Dextrose 50 ml @ 100 mls/hr ONCE ONCE IV 05/09/21 15:00 05/09/21 15:29 DC 05/09/21 16:19 100 MLS/HR Diatrizoate Meglum/ Diatrizoate Sod 120 ml ONCE ONCE PO 05/09/21 16:30 05/09/21 16:31 DC 05/09/21 16:26 50 ML Hydromorphone HCl 0.5 mg ONCE ONCE IV 05/09/21 15:00 05/09/21 15:01 DC 05/09/21 15:06 0.5 MG Iohexol 100 ml ONCE ONCE IV 05/09/21 15:00 05/09/21 15:02 DC 05/09/21 17:02 92 ML Metronidazole 100 ml @ 100 mls/hr ONCE ONCE IV 05/09/21 15:00 05/09/21 15:59 DC 05/09/21 16:19 100 MLS/HR Sodium Chloride 100 ml ONCE ONCE IV 05/09/21 15:00 05/09/21 15:02 DC 05/09/21 17:02 80 ML Sodium Chloride 1,000 ml @ 0 mls/hr Q0M ONCE IV 05/09/21 15:00 11/18/21 15:01 DC 05/09/21 15:06 0 MLS/HR Vital Signs/I&O 05/09/21 14:36 Pulse 120 Resp 20 B/P (MAP) 145/96 (112) Pulse Ox 98 O2 Delivery Room Air Blood Pressure Mean: 112 Progress Progress Note #1: Time: 14:59 Progress Note Near rigid abdomen. Plan to give him Dilaudid for pain, he advises that fentanyl in the past has not done anything for him. Zofran for nausea. 2 L of fluid and a septic work-up with his history of fever tachycardia and concern for peritonitis. CT to look for bowel obstruction. Oral contrast with IV contrast. Progress Note #2: Time: 15:48 Progress Note Pain is now 3. Nausea is gone. He is drinking his oral contrast Diagnostic Imaging Diagonstic Imaging: CT Plain Films/CT/US/NM/MRI: abdomen, pelvis Comments [facility]. [place], [place] NAME: JACK SMITH [facility] REC#: [id number] PT STATUS: REG ER : 1985 PHYSICIAN: AYDEN BAILEY MD ADMIT DATE: 05/09/21/ER Draft Date of Exam:05/09/21 CT ABDOMEN/PELVIS W PROCEDURE: CT abdomen and pelvis with contrast. TECHNIQUE: Multiple contiguous axial images were obtained through the abdomen and pelvis after administration of intravenous contrast. Auto Exposure Controls were utilized during the CT exam to meet ALARA standards for radiation dose reduction. All CT scans use one or more of the following dose optimizing techniques: automated exposure control, MA and/or KvP adjustment based on patient size and exam type or iterative reconstruction. INDICATION: Severe abdominal pain, previous history of bowel obstruction, nausea and vomiting. 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 COMPARISONS: 11/08/2020. FINDINGS: Lung bases are clear. Cardiac contour is normal. Liver shows uniform attenuation. There is no intraparenchymal mass or ductal dilatation. Gallbladder is surgically absent. Spleen and GE junction are normal. Stomach and duodenal sweep are unremarkable. Pancreas shows sharp margins. Adrenals are normal. Kidneys appear normal in size, position and contour with symmetrical perfusion and excretion of contrast. Both ureters are seen intermittently through their course and appear unremarkable. Bladder is nondistended. There is markedly distended small bowel with air-fluid levels and mucosal thickening. This extends towards the enteric anastomosis with the large bowel near hepatic flexure of the colon. The transverse colon contains some liquid stool and gas. The distal colon is mostly decompressed. There is no free air, free fluid or adenopathy. Visualized vasculature shows normal caliber of the aorta, iliac and femoral arteries with normal origin of the visceral arteries. IMPRESSION: 1. Distal small bowel obstruction with dilated loops of small bowel with air-fluid levels and distal small bowel mucosal thickening extending towards enteric anastomosis near the hepatic flexure of the colon. 2. Surgical absence of the gallbladder. 3. No evidence of obstructive uropathy. Additional nonemergent findings as described above. Dictated on workstation # [id number] Dict: 05/09/21 1708 Trans: 05/09/21 1722 [id number] Interpreted by: KERMIT HEATH MD Electronically signed by: Reviewed: Reviewed by Me Diagonstic Imaging: Xray Plain Films/CT/US/NM/MRI: chest Comments NAME: SARAHJACK Pj [facility] REC#: [id number] PT STATUS: REG ER : 1985 PHYSICIAN: AYDEN BAILEY MD ADMIT DATE: 05/09/21/ER Draft Date of Exam:05/09/21 CHEST 1 VIEW, AP/PA ONLY CLINICAL INDICATION: Patient with sepsis. EXAM: Portable chest x-ray upright view. COMPARISONS: None. FINDINGS: There is curvilinear dense areas overlying the periphery of both upper lung shah which may be related to the scapula. Lungs/pleura: Lungs are clear. There is no pneumothorax. There is no pleural effusion. Mediastinum: Unremarkable. Pulmonary vasculature: Unremarkable. Heart: Unremarkable. Bones/extrathoracic soft tissue: Unremarkable. IMPRESSION: There is no radiographic evidence of acute cardiopulmonary process. Dictated on workstation # [id number] Dict: 05/09/21 1518 Trans: 05/09/21 1524 [id number] Interpreted by: DANIELLA TALAVERA MD Electronically signed by: Reviewed: Reviewed by Me Departure Communication (Admissions) Time/Spoke to Admitting Phy: 17:32 Discussed the case with Dr. Morris and he agrees to admit the patient to [facility] with general surgery consultation. He agrees with holding off IV antibiotics for now and treating it like a bowel obstruction. Time/Spoke to Consulting Phy: 17:30 Discussed the case with Dr. Veliz and he agrees to consult on the case for general surgery. Impression Primary Impression: Small bowel obstruction Additional Impression: Crohn's disease Qualified Codes: K50.013 - Crohn's disease of small intestine with fistula Disposition: ADMITTED INPATIENT Condition: Stable Admissions Decision to Admit Reason: Admit from ER (General) Decision to Admit/Date: May 09, 2021 Time/Decision to Admit Time: 17:26 Departure-Patient Inst. Referrals: NO,LOCAL PHYSICIAN (PCP/Family) Primary Care Physician AYDEN BAILEY May 09, 2021 15:00
[2021-05-09 15:05] LABS: BASOPHILS % (AUTO) 0 % (0-10); EOSINOPHILS # (AUTO) 0.1 10^3/uL (0.0-0.3); EOSINOPHILS % (AUTO) 1 % (0-10); HEMATOCRIT 49 % (40-54); HEMOGLOBIN 17.1 g/dL (13.3-17.7); LYMPHOCYTES # (AUTO) 1.4 X 10^3 (1.0-4.0); LYMPHOCYTES % (AUTO) 12 % (12-44); MEAN CORPUSCULAR HEMOGLOBIN 28 pg (25-34); MEAN CORPUSCULAR HGB CONC 35 g/dL (32-36); MEAN CORPUSCULAR VOLUME 80 fL (80-99); MEAN PLATELET VOLUME 9.2 fL (9.0-12.2); MONOCYTES # (AUTO) 1.5 X 10^3 (0.0-1.0); MONOCYTES % (AUTO) 13 % (0-12); NEUTROPHILS # (AUTO) 8.8 X 10^3 (1.8-7.8); NEUTROPHILS % (AUTO) 74 % (42-75); PLATELET COUNT 337 10^3/uL (130-400); WHITE BLOOD COUNT 11.8 10^3/uL (4.3-11.0)
[2021-05-09 15:06] LABS: ALBUMIN 4.4 GM/DL (3.2-4.5); POTASSIUM 3.5 MMOL/L (3.6-5.0)
[2021-05-09 15:07] LABS: CALCIUM 9.6 MG/DL (8.5-10.1)
[2021-05-09 15:09] LABS: TOTAL PROTEIN 7.9 GM/DL (6.4-8.2)
[2021-05-09 15:10] LABS: INR 1.1 (0.8-1.4); PROTHROMBIN TIME PATIENT 14.3 SEC (12.2-14.7)
[2021-05-09 15:11] LABS: BILIRUBIN,TOTAL 3.6 MG/DL (0.1-1.0)
[2021-05-09 15:12] LABS: CREATININE SERUM 1.23 MG/DL (0.60-1.30)
--- NOTE | 2021-05-09 15:24 | Diagnostic Imaging Report ---
CLINICAL INDICATION: Patient with sepsis. EXAM: Portable chest x-ray upright view. COMPARISONS: None. FINDINGS: There is curvilinear dense areas overlying the periphery of both upper lung shah which may be related to the scapula. Lungs/pleura: Lungs are clear. There is no pneumothorax. There is no pleural effusion. Mediastinum: Unremarkable. Pulmonary vasculature: Unremarkable. Heart: Unremarkable. Bones/extrathoracic soft tissue: Unremarkable. IMPRESSION: There is no radiographic evidence of acute cardiopulmonary process. Dictated by: Dictated on workstation # [id number]
[2021-05-09] MEDS ORDERED: DIATRIZOATE MEGLUM/SODIUM 37% 120 ML (GASTROGRAFIN) PO ONE (16:30)
--- NOTE | 2021-05-09 17:22 | Diagnostic Imaging Report ---
PROCEDURE: CT abdomen and pelvis with contrast. TECHNIQUE: Multiple contiguous axial images were obtained through the abdomen and pelvis after administration of intravenous contrast. Auto Exposure Controls were utilized during the CT exam to meet ALARA standards for radiation dose reduction. All CT scans use one or more of the following dose optimizing techniques: automated exposure control, MA and/or KvP adjustment based on patient size and exam type or iterative reconstruction. INDICATION: Severe abdominal pain, previous history of bowel obstruction, nausea and vomiting. 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 COMPARISONS: 11/08/2020. FINDINGS: Lung bases are clear. Cardiac contour is normal. Liver shows uniform attenuation. There is no intraparenchymal mass or ductal dilatation. Gallbladder is surgically absent. Spleen and GE junction are normal. Stomach and duodenal sweep are unremarkable. Pancreas shows sharp margins. Adrenals are normal. Kidneys appear normal in size, position and contour with symmetrical perfusion and excretion of contrast. Both ureters are seen intermittently through their course and appear unremarkable. Bladder is nondistended. There is markedly distended small bowel with air-fluid levels and mucosal thickening. This extends towards the enteric anastomosis with the large bowel near hepatic flexure of the colon. The transverse colon contains some liquid stool and gas. The distal colon is mostly decompressed. There is no free air, free fluid or adenopathy. Visualized vasculature shows normal caliber of the aorta, iliac and femoral arteries with normal origin of the visceral arteries. IMPRESSION: 1. Distal small bowel obstruction with dilated loops of small bowel with air-fluid levels and distal small bowel mucosal thickening extending towards enteric anastomosis near the hepatic flexure of the colon. 2. Surgical absence of the gallbladder. 3. No evidence of obstructive uropathy. Additional nonemergent findings as described above. Dictated by: Dictated on workstation # [id number]
[2021-05-09 17:41] LABS: CLARITY,URINE CLEAR; COLOR,URINE YELLOW; GLUCOSE, URINE (UA) NEGATIVE (NEGATIVE); KETONES,URINE 2+ (NEGATIVE); LEUKOCYTE ESTERASE ,URINE NEGATIVE (NEGATIVE); NITRITE,URINE NEGATIVE (NEGATIVE); PROTEIN,URINE TRACE (NEGATIVE)
[2021-05-09 17:54] LABS: BILIRUBIN,URINE 2+ (NEGATIVE)
[2021-05-09 17:56] LABS: AMORPHOUS SEDIMENT,UR FEW AMOR URATES /LPF; BACTERIA,URINE NEGATIVE /HPF
--- NOTE | 2021-05-09 18:56 | Consultation - Surgery ---
History of Present Illness History of Present Illness Patient Consulted On(prema/time) 05/09/21 18:51 Date Seen by Provider: May 09, 2021 Time Seen by Provider: 18:51 History of Present Illness Consult requested by Dr. Salas for sbo/crohn's 35 year old male with crohn's disease. Patient not taking anything for maintenance. Was driving here from [place] and began having cramping sharp abdominal pain. Moves around abdomen. Nothing makes better or worse. Pain moderate to severe. Has a fistula that developed in October. No flatus or bm last couple days. Having nausea and vomiting. Having fever as well. Denies sweats chills shortness of breath or chest pain. Ct scan showing dilated loops of small bowel with thickening to anastamosis. Allergies and Home Medications Allergies Coded Allergies: naproxen (Unverified Allergy, Unknown, 09/18/13) Uncoded Allergies: ADVANCED FORM OF PCN (Allergy, Mild, 09/18/13) Patient Home Medication List Home Medication List Reviewed: Yes Oxycodone HCl/Acetaminophen (Oxycodone-Acetaminophen 5-325) 1 Each Tablet, 1 EACH PO Q4H PRN for PAIN-SEVERE Prescribed by: NILO DEAL on 06/14/20 1011 Prednisone (Prednisone) 20 Mg Tab, 40 MG PO DAILY@0700 Prescribed by: NILO DEAL on 06/14/20 1011 Past Vjbytop-Dicpah-Kmcbtp Hx Patient Social History Smoking Status: Current Everyday Smoker Type Used: Electronic/Vapor 2nd Hand Smoke Exposure: No Alcohol Use?: No Have you traveled recently?: No Immunizations Up To Date Tetanus Booster (TDap): Less than 5yrs PED Vaccines UTD: Yes Date of Pneumonia Vaccine: Apr 25, 2020 Date of Influenza Vaccine: Apr 25, 2020 Surgeries History of Surgeries: Yes (APPY/ABSCESS 2011, "TRIPLE COLON RESECTION" 10/2013, PICC LINE/REMOVED) Surgeries: Abdominal, Appendectomy, Bowel Surgery, Gallbladder Respiratory History of Respiratory Disorde: No Cardiovascular History of Cardiac Disorders: Yes (IRREGULAR HEART RATE AT TIMES. EX;DURING STRESS) Neurological History of Neurological Disord: No Reproductive System Hx Reproductive Disorders: No Genitourinary History of Genitourinary Disor: No Gastrointestinal History of Gastrointestinal Di: Yes (INTESTINAL PARASITE/RODGER 2009, APPY /ABSCESS, TRIPLE BOWEL RESECTION 2013) Gastrointestinal Disorders: Crohns Disease, Ulcer Musculoskeletal History of Musculoskeletal Dis: Yes (R/T CROHN'S) Musculoskeletal Disorders: Chronic Back Pain Endocrine History of Endocrine Disorders: No HEENT History of HEENT Disorders: No Loss of Vision: Denies Hearing Impairment: Denies Cancer History of Cancer: No Psychosocial History of Psychiatric Problem: No Integumentary History of Skin or Integumenta: No Blood Transfusions History of Blood Disorders: No Adverse Reaction to a Blood Tr: No Reviewed Nursing Assessment Reviewed/Agree w Nursing PMH: Yes Family Medical History Significant Family History: No Pertinent Family Hx, Other Conditions/Hx Family Medial History: Patient reports no known family medical history. Review of Systems-General Constitutional: No chills, No weakness EENTM: No blurred vision, No double vision Respiratory: No dyspnea on exertion, No short of breath Gastrointestinal: abdominal pain, nausea, vomiting Genitourinary: No decreased output, No discharge Musculoskeletal: No back pain, No joint pain Skin: No change in color, No change in hair/nails Psychiatric/Neurological: Denies Anxiety, Denies Depressed, Denies Emotional Problems All Other Systems Reviewed Negative Unless Noted: Yes (Negative excepted noted.) Physical Exam-General Problems Physical Exam Vital Signs Vital Signs - First Documented 05/09/21 14:36 Pulse 120 Resp 20 B/P (MAP) 145/96 (112) Pulse Ox 98 O2 Delivery Room Air Capillary Refill : Less Than 3 Seconds General Appearance: WD/WN, no apparent distress HEENT: PERRL/EOMI Neck: non-tender, supple Respiratory: chest non-tender, no respiratory distress Cardiovascular: regular rate, rhythm, no JVD Gastrointestinal: soft, distended (minimally, fistula at midline scar, tenderness mild diffusely.) Rectal: deferred Back: no CVA tenderness, no vertebral tenderness Extremities: normal range of motion, normal inspection 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, no motor/sensory deficits, alert, normal mood/affect, oriented x 3 Skin: normal color, warm/dry Lymphatic: no adenopathy Data Review Labs Laboratory Tests 05/09/21 14:43: White Blood Count 11.8H, Red Blood Count 6.11H, Hemoglobin 17.1, Hematocrit 49, Mean Corpuscular Volume 80, Mean Corpuscular Hemoglobin 28, Mean Corpuscular Hemoglobin Concent 35, Red Cell Distribution Width 14.0, Platelet Count 337, Mean Platelet Volume 9.2, Immature Granulocyte % (Auto) 0, Neutrophils (%) (Auto) 74, Lymphocytes (%) (Auto) 12, Monocytes (%) (Auto) 13H, Eosinophils (%) (Auto) 1, Basophils (%) (Auto) 0, Neutrophils # (Auto) 8.8H, Lymphocytes # (Auto) 1.4, Monocytes # (Auto) 1.5H, Eosinophils # (Auto) 0.1, Basophils # (Auto) 0.0, Immature Granulocyte # (Auto) 0.0, Prothrombin Time 14.3, INR Comment 1.1, Activated Partial Thromboplast Time 31, Sodium Level 137, Potassium Level 3.5L, Chloride Level 104, Carbon Dioxide Level 17L, Anion Gap 16H, Blood Urea Nitrogen 14, Creatinine 1.23, Estimat Glomerular Filtration Rate 68, BUN/Creatinine Ratio 11, Glucose Level 116H, Calcium Level 9.6, Corrected Calcium 9.3, Total Bilirubin 3.6H, Aspartate Amino Transf (AST/SGOT) 15, Alanine Aminotransferase (ALT/SGPT) 12, Alkaline Phosphatase 130, Total Protein 7.9, Albumin 4.4 05/09/21 15:00: Lactic Acid Level 1.90 05/09/21 17:28: Urine Color YELLOW, Urine Clarity CLEAR, Urine pH 6.0, Urine Specific [place] 1.020, Urine Protein TRACEH, Urine Glucose (UA) NEGATIVE, Urine Ketones 2+H, Urine Nitrite NEGATIVE, Urine Bilirubin 2+H, Urine Urobilinogen 0.2, Urine Leukocyte Esterase NEGATIVE, Urine RBC (Auto) NEGATIVE, Urine RBC 2-5H, Urine WBC NONE, Urine Crystals PRESENTH, Urine Amorphous Sediment FEW CESAR URATESH, Urine Bacteria NEGATIVE, Urine Casts NONE, Urine Mucus MODERATEH, Urine Culture Indicated CULTURE PENDING Assessment/Plan Assessment/Plan Assessment/Plan small bowel obstruction crohn's enterocutaneous fistula reveiwed ct , feel this obstruction is secondary to thickening. not on anything for his crohn's feel will likely benefit from solumedrol. If n/v will need NG tube inserted. Await bowel function. NPO Iv hydration Control fistula with frequent bandage changes, consider building up and use ostomy bag. ARAMIS WOMACK DO May 09, 2021 18:56
[2021-05-09] MEDS ORDERED: ONDANSETRON 4 MG/2 ML (SDV) Z0FRAN IV PRN (19:15)
[2021-05-09] MEDS ORDERED: FLU QUADRIvalent (3YOA+) 60 mcg/0.5 ml 2021-22(AFLURIA) IM ONE (19:15)
[2021-05-09] MEDS ORDERED: PROMETHAZINE INJ 25 MG/ML (PHENERGAN) AMP IV PRN (19:15)
[2021-05-09 20:00] VITALS: BP 120/73
[2021-05-09] MEDS: methylPREDNISolone 40 MG/ML (Solu-MEDROL) VIAL IV SCH (20:01)
[2021-05-09] MEDS: HYDROmorphone 2 MG/ML VIAL (DILAUDID) IV PRN (20:01)
[2021-05-09] MEDS: LACTATED RINGERS 1,000 ML IV SCH (20:11)
[2021-05-09 23:55] VITALS: BP 102/60
[2021-05-10] MEDS: HYDROmorphone 2 MG/ML VIAL (DILAUDID) IV PRN (00:18)
[2021-05-10] MEDS: LACTATED RINGERS 1,000 ML IV SCH ×3 (03:46→16:40)
[2021-05-10 05:00] VITALS: BP 89/56
[2021-05-10 06:15] LABS: BASOPHILS % (AUTO) 0 % (0-10); EOSINOPHILS % (AUTO) 0 % (0-10); HEMATOCRIT 39 % (40-54); HEMOGLOBIN 13.3 g/dL (13.3-17.7); LYMPHOCYTES # (AUTO) 0.4 10^3/uL (1.0-4.0); LYMPHOCYTES % (AUTO) 6 % (12-44); MEAN CORPUSCULAR HEMOGLOBIN 28 pg (25-34); MEAN CORPUSCULAR HGB CONC 34 g/dL (32-36); MEAN CORPUSCULAR VOLUME 82 fL (80-99); MONOCYTES # (AUTO) 0.2 10^3/uL (0.0-1.0); MONOCYTES % (AUTO) 2 % (0-12); NEUTROPHILS # (AUTO) 6.2 10^3/uL (1.8-7.8); NEUTROPHILS % (AUTO) 91 % (42-75); PLATELET COUNT 238 10^3/uL (130-400); WHITE BLOOD COUNT 6.8 10^3/uL (4.3-11.0)
[2021-05-10 06:35] LABS: BAND NEUTROPHILS 10 %; LYMPHOCYTES % (MANUAL) 10 %; MONOCYTES % (MANUAL) 7 %; NEUTROPHILS % (MANUAL) 73 %
[2021-05-10 06:36] LABS: MICROCYTOSIS SLIGHT
[2021-05-10 06:42] LABS: CALCIUM 8.5 MG/DL (8.5-10.1); CREATININE SERUM 0.79 MG/DL (0.60-1.30); POTASSIUM 4.3 MMOL/L (3.6-5.0)
--- NOTE | 2021-05-10 07:14 | Progress Note - Surgery ---
CHAPMANJasonVASQUEZ GAMA 05/10/21 0714: Subjective Date Seen by a Provider: May 10, 2021 Time Seen by a Provider: 07:09 Subjective/Events-last exam Patient is doing well, was up and ambulating when I visited with him; he states minimal pain, and denies any nausea or vomiting. He states that he had 2 liquid bowel movements around 4am today, after which his pain diminished. Abdomen is less distended, and is not tender to palpation. Fistula appears dry and clean, with gauze placed over it. Review of Systems General: No Chills, No Night Sweats HEENT: No Head Aches, No Visual Changes Pulmonary: No Dyspnea, No Cough Cardiovascular: No: Chest Pain, Palpitations Gastrointestinal: Abdominal Pain (low grade, controlled); No: Nausea, Vomiting Genitourinary: No Dysuria, No Frequency Musculoskeletal: No: arm pain, leg pain Neurological: No: Weakness, Numbness Focused Exam Lactate Level 05/09/21 15:00: Lactic Acid Level 1.90 Respiratory: Chest Non Tender, Lungs Clear, Normal Breath Sounds, No Accessory Muscle Use, No Respiratory Distress Cardiovascular: Regular Rate, Rhythm, No Edema, No Gallop, No Murmur, Normal Peripheral Pulses Capillary Refill: Less Than 3 Seconds Peripheral Pulses: 2+ Radial Pulses (R), 2+ Radial Pulses (L) Skin: normal color, warm/dry, other (Midline Enterocutaneous fistula ) Objective Exam Vital Signs Date Time Temp Pulse Resp B/P (MAP) Pulse Ox O2 Delivery O2 Flow Rate FiO2 05/10/21 05:00 36.7 77 16 89/56 (67) 95 Room Air 05/10/21 00:48 36.9 05/09/21 23:55 36.9 94 16 102/60 (74) 96 Room Air 05/09/21 20:00 Room Air 05/09/21 20:00 Room Air 05/09/21 20:00 37.3 100 22 120/73 (89) 98 Room Air 05/09/21 18:16 86 16 100/63 98 Room Air 05/09/21 14:36 120 20 145/96 (112) 98 Room Air I & O 05/10/21 07:00 Intake Total 2440 ml Output Total 552 ml Balance 1888 ml Capillary Refill : Less Than 3 Seconds General Appearance: No Apparent Distress, WD/WN HEENT: PERRL/EOMI, TMs Normal, Normal ENT Inspection, Pharynx Normal Neck: Full Range of Motion, Normal Inspection, Non Tender, Supple Respiratory: Chest Non Tender, Lungs Clear, Normal Breath Sounds, No Accessory Muscle Use, No Respiratory Distress Cardiovascular: Regular Rate, Rhythm, No Edema, No Gallop, No Murmur, Normal Peripheral Pulses Peripheral Pulses: 2+ Radial Pulses (R), 2+ Radial Pulses (L) Gastrointestinal: soft, abnormal bowel sounds (hypoactive), distended (minimally, fistula at midline scar, tenderness mild diffusely.) Extremity: Normal Capillary Refill, Normal Inspection, No Calf Tenderness, No Pedal Edema Neurologic/Psychiatric: Alert, Oriented x3, No Motor/Sensory Deficits, Normal 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/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, 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 Norm as Tested Skin: Normal Color, Warm/Dry Lymphatic: No Adenopathy Results Lab Laboratory Tests 05/09/21 14:43: White Blood Count 11.8H, Red Blood Count 6.11H, Hemoglobin 17.1, Hematocrit 49, Mean Corpuscular Volume 80, Mean Corpuscular Hemoglobin 28, Mean Corpuscular Hemoglobin Concent 35, Red Cell Distribution Width 14.0, Platelet Count 337, Me an Platelet Volume 9.2, Immature Granulocyte % (Auto) 0, Neutrophils (%) (Auto) 74, Lymphocytes (%) (Auto) 12, Monocytes (%) (Auto) 13H, Eosinophils (%) (Auto) 1, Basophils (%) (Auto) 0, Neutrophils # (Auto) 8.8H, Lymphocytes # (Auto) 1.4, Monocytes # (Auto) 1.5H, Eosinophils # (Auto) 0.1, Basophils # (Auto) 0.0, Immature Granulocyte # (Auto) 0.0, Prothrombin Time 14.3, INR Comment 1.1, Activated Partial Thromboplast Time 31, Sodium Level 137, Potassium Level 3.5L, Chloride Level 104, Carbon Dioxide Level 17L, Anion Gap 16H, Blood Urea Nitrogen 14, Creatinine 1.23, Estimat Glomerular Filtration Rate 68, BUN/Creatinine Ratio 11, Glucose Level 116H, Calcium Level 9.6, Corrected Calcium 9.3, Total Bilirubin 3.6H, Aspartate Amino Transf (AST/SGOT) 15, Alanine Aminotransferase (ALT/SGPT) 12, Alkaline Phosphatase 130, Total Protein 7.9, Albumin 4.4 11/18/21 15:00: Lactic Acid Level 1.90 05/09/21 17:28: Urine Color YELLOW, Urine Clarity CLEAR, Urine pH 6.0, Urine Specific [place] 1.020, Urine Protein TRACEH, Urine Glucose (UA) NEGATIVE, Urine Ketones 2+H, Urine Nitrite NEGATIVE, Urine Bilirubin 2+H, Urine Urobilinogen 0.2, Urine Leukocyte Esterase NEGATIVE, Urine RBC (Auto) NEGATIVE, Urine RBC 2-5H, Urine WBC NONE, Urine Crystals PRESENTH, Urine Amorphous Sediment FEW CESAR URATESH, Urine Bacteria NEGATIVE, Urine Casts NONE, Urine Mucus MODERATEH, Urine Culture Indicated CULTURE PENDING 05/10/21 05:38: White Blood Count 6.8, Red Blood Count 4.77, Hemoglobin 13.3, Hematocrit 39L, Mean Corpuscular Volume 82, Mean Corpuscular Hemoglobin 28, Mean Corpuscular Hemoglobin Concent 34, Red Cell Distribution Width 13.9, Platelet Count 238, Mean Platelet Volume 10.0, Immature Granulocyte % (Auto) 0, Neutrophils (%) (Auto) 91H, Lymphocytes (%) (Auto) 6L, Monocytes (%) (Auto) 2, Eosinophils (%) (Auto) 0, Basophils (%) (Auto) 0, Neutrophils # (Auto) 6.2, Lymphocytes # (Auto) 0.4L, Monocytes # (Auto) 0.2, Eosinophils # (Auto) 0.0, Basophils # (Auto) 0.0, Immature Granulocyte # (Auto) 0.0, Sodium Level 136, Potassium Level 4.3, Chloride Level 106, Carbon Dioxide Level 17L, Anion Gap 13, Blood Urea Nitrogen 9, Creatinine 0.79, Estimat Glomerular Filtration Rate 113, BUN/Creatinine Ratio 11, Glucose Level 143H, Calcium Level 8.5, Neutrophils % (Manual) 73, Lymphocytes % (Manual) 10, Monocytes % (Manual) 7, Band Neutrophils 10, Microcytosis SLIGHT Meds Item Value Date Time Sodium Chloride 10-40 ML 05/09/211914 (Catheter Flush NEEDED PRN/IV Syringe) Hydromorphone HCl 0.5 mg 05/09/211914 (Dilaudid Q4H PRN/IV 05/10/21 0018 Injection) Acetaminophen/ 1 ea 05/09/211914 Hydrocodone Bitart Q4H PRN/PO (Lortab 10 Mg Tablet) Promethazine HCl 25 mg 05/09/211914 (Phenergan Q6H PRN/IV Injection) Ondansetron HCl 8 mg 05/09/211914 (Zofran Q6H PRN/IV Injection (Sdv)) Lactated Ringer's 1,000 ml @ 125 mls/hr 05/09/211914 Methylprednisolone 60 mg 05/09/211899 Sodium Succinate DAILY/IV 05/09/212000 (Solu-MEDROL INJECTION) Miscellaneous 05/09/21 1500 (Hold Metformin- UD/IV Contrast Received) Assessment/Plan Assessment/Plan Assessment/Plan small bowel obstruction crohn's enterocutaneous fistula reveiwed ct , feel this obstruction is secondary to thickening. not on anything for his crohn's feel will likely benefit from solumedrol. NPO Iv hydration Control fistula with frequent bandage changes, consider building up and use ostomy bag. ARAMIS WOMACK DO 05/10/211938: Subjective Subjective/Events-last exam Patient doing well. He has no pain at this time. He started having liquid bowel movements. He started on clear liquids. Patient doing okay. Still with fistula drainage, minimal. 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 Patient started having bowel function. Started on clears. Slowly advance as tolerates. Will need to taper Solu-Medrol. Patient instructed will need follow-up with his GI in [place]. Supervisory-Addendum Brief Verification & Attestation Participated in pt care: history, MDM, physical Personally performed: exam, history, MDM, supervision of care Care discussed with: Medical Student Procedures: n/a Results interpretation: Verified all documentation Verification and Attestation of Medical Student E/M Service A medical student performed and documented this service in my presence. I reviewed and verified all information documented by the medical student and made modifications to such information, when appropriate. I personally performed the physical exam and medical decision making. Aramis Womack, May 10, 2021,19:39 VASQUEZ ETIENNE May 10, 2021 07:14 ARAMIS WOMACK DO May 10, 2021 19:39
[2021-05-10 07:32] VITALS: BP 95/57
[2021-05-10] MEDS: methylPREDNISolone 40 MG/ML (Solu-MEDROL) VIAL IV SCH (08:55)
[2021-05-10 11:25] VITALS: BP 100/64
--- NOTE | 2021-05-10 13:14 | History & Physical-Hospitalist ---
History of Present Illness HPI/Chief Complaint Kalen Johnson is a 35 year old male with PMH Crohns s/p partial colectomy who presented with abdominal pain. He also had nausea and vomiting. He reports not having bowel movements or passing gas for a couple days. He denies fevers or chills. He denies blood in his stools. He has been tolerating clear liquids today well. He had a few bowel movements. He is not having anymore nausea, vomiting, or abdominal pain. Source: patient Exam Limitations: no limitations Date Seen 05/10/21 Time Seen by a Provider: 10:20 Attending Physician Carito Smith MD PCP No,Local Physician Referring Physician Date of Admission May 09, 2021 at 17:40 Home Medications & Allergies Home Medications Reviewed patient Home Medication Reconciliation performed by pharmacy medication reconciliations voice intercept technician and/or nursing. Patients Allergies have been reviewed. Allergies Allergies Coded Allergies naproxen (Unverified Allergy, Unknown, 09/18/13) Uncoded Allergies ADVANCED FORM OF PCN ( Allergy, Mild, 09/18/13) Past Xcirlun-Qassnl-Zthape Hx Patient Social History Tobacco Use?: Yes Tobacco type used: Cigarettes Smoking Status: Current Everyday Smoker Use of E-Cig and/or Vaping dev: No Substance use?: No Alcohol Use?: No Alcohol Frequency: Once in a while Pt feels they are or have been: No Immunizations Up To Date Date of Influenza Vaccine: Apr 25, 2020 First/Initial COVID19 Vaccinat: Mar, Tetanus Booster (TDap): Less Than 5 Years PED Vaccines UTD: Yes Date of Pneumonia Vaccine: Apr 25, 2020 Current Status Advance Directives: No Communicates: Verbally Primary Language: Honduran Preferred Spoken Language: Honduran Is interpretation needed?: No Past Medical History Surgeries: Abdominal, Appendectomy, Bowel Surgery, Gallbladder Crohns Disease, Ulcer Chronic Back Pain Loss of Vision: Denies Hearing Impairment: Denies Blood Disorders: No Adverse Reaction/Blood Tranf: No Family Medical History Patient reports no known family medical history. No Pertinent Family Hx, Other Conditions/Hx Review of Systems Constitutional: no symptoms reported EENTM: no symptoms reported Respiratory: no symptoms reported Cardiovascular: no symptoms reported Gastrointestinal: abdominal pain, nausea, vomiting Genitourinary: no symptoms reported Musculoskeletal: no symptoms reported Skin: no symptoms reported Psychiatric/Neurological: No Symptoms Reported Physical Exam Physical Exam Vital Signs Vital Signs - First Documented 05/09/21 14:36 Pulse 120 Resp 20 B/P (MAP) 145/96 (112) Pulse Ox 98 O2 Delivery Room Air Capillary Refill : Less Than 3 Seconds Height, Weight, BMI Height: 5'7" Weight: 155lbs. oz. [id number]; 23.78 BMI Method:Stated General Appearance: No Apparent Distress, WD/WN HEENT: PERRL/EOMI, Pharynx Normal Neck: Normal Inspection, Supple Respiratory: Lungs Clear, Normal Breath Sounds, No Respiratory Distress Cardiovascular: Regular Rate, Rhythm, No Edema, No Murmur Gastrointestinal: Non Tender, Soft, Abnormal Bowel Sounds (hypoactive) Extremity: Normal Inspection, Non Tender, No Pedal Edema Neurologic/Psychiatric: Alert, Oriented x3, No Motor/Sensory Deficits, Normal Mood/Affect Skin: Normal Color, Warm/Dry Results Results/Procedures Labs Laboratory Tests 05/09/21 14:43 05/10/21 05:38 Patient resulted labs reviewed. Imaging: Reviewed Imaging Report Assessment/Plan Admission Diagnosis Small bowel obstruction Admission Status: Inpatient Order (span 2 midnights) Reason for Inpatient Admission: Medical management of bowel obstruction, possible surgical intervention Assessment and Plan SBO Crohn's disease CT showed distal small bowel obstruction Not on any meds for Crohn's No evidence of Crohn's flare Stop steroids Surgery following Advanced to clears Having bowel movements Symptoms resolving Monitor Diagnosis/Problems Diagnosis/Problems (1) Small bowel obstruction Status: Acute (2) Crohn's disease Status: Chronic Qualifiers: Gastrointestinal tract location: small intestine Digestive disease complic ation type: with fistula Qualified Codes: K50.013 - Crohn's disease of small intestine with fistula CARITO SMITH MD May 10, 2021 13:14
[2021-05-10 15:15] VITALS: BP 104/68
[2021-05-10 19:36] VITALS: BP 104/61
[2021-05-11 00:30] VITALS: BP 96/53
[2021-05-11] MEDS: LACTATED RINGERS 1,000 ML IV SCH (03:28)
[2021-05-11 04:18] VITALS: BP 97/50
[2021-05-11 07:30] VITALS: BP 100/62
--- NOTE | 2021-05-11 09:26 | Progress Note - Surgery ---
CORKY UMANA 05/11/21 0926: Subjective Date Seen by a Provider: May 11, 2021 Time Seen by a Provider: 07:30 Subjective/Events-last exam Patient resting in bed. Not in distress. Patient had 2 bm o/n. Patient denies abdominal pain. Patient ambulating and has no acute issues. Pain is 3/4 in RLQ that patient states occurs frequently. Patient tolerating clears well. Patient denies fever, n/v, chills, sweats, shortness of breath, chest pain, palpitations, muscle pain, issues with vision, dizziness or lightheadedness. Review of Systems General: No Chills, No Night Sweats HEENT: No Head Aches, No Visual Changes Pulmonary: No Dyspnea, No Cough Cardiovascular: No: Chest Pain, Palpitations Gastrointestinal: No: Nausea, Vomiting, Abdominal Pain, Constipation, Melena, Hematochezia Genitourinary: No Dysuria, No Frequency Musculoskeletal: No: neck pain, shoulder pain Neurological: No: Weakness, Numbness Focused Exam Lactate Level 05/09/21 15:00: Lactic Acid Level 1.90 Objective Exam Vital Signs Date Time Temp Pulse Resp B/P (MAP) Pulse Ox O2 Delivery O2 Flow Rate FiO2 05/11/21 07:30 36.4 75 16 100/62 (75) 97 Room Air 05/11/21 04:18 36.4 55 16 97/50 (66) 95 Room Air 05/11/21 00:30 36.6 74 18 96/53 (67) 95 Room Air 05/10/21 20:00 Room Air 05/10/21 19:36 36.7 79 18 104/61 (75) 98 Room Air 05/10/21 15:15 36.9 87 18 104/68 (80) 95 Room Air 05/10/21 11:25 36.3 77 18 100/64 (76) 97 Room Air I & O 05/11/21 07:00 Intake Total 1585 ml Output Total 3707 ml Balance -2122 ml Capillary Refill : Less Than 3 Seconds General Appearance: No Apparent Distress, WD/WN HEENT: PERRL/EOMI, Pharynx Normal, Moist Mucous Membranes Neck: Full Range of Motion, Normal Inspection, Non Tender, Supple Respiratory: Chest Non Tender, Normal Breath Sounds, No Accessory Muscle Use, No Respiratory Distress Cardiovascular: Regular Rate, Rhythm, No Gallop, No Murmur Peripheral Pulses: 2+ Dorsalis Pedis (R), 2+ Left Dors-Pedis (L), 2+ Radial Pulses (R), 2+ Radial Pulses (L) Gastrointestinal: non tender (Midline fistula), soft, no organomegaly, no pulsatile mass; No distended, No guarding, No rebound Extremity: Normal Capillary Refill, Normal Inspection, Non Tender, No Calf Tenderness Neurologic/Psychiatric: Alert, Oriented x3, No Motor/Sensory Deficits, Normal Mood/Affect Skin: Normal Color, Warm/Dry, Other (Fistula is red, moist, tender) Lymphatic: No Adenopathy (cervical, axillary) Results Lab Microbiology 05/09/21 Blood Culture - Preliminary, Resulted No growth Assessment/Plan Assessment/Plan Assessment/Plan small bowel obstruction crohn's enterocutaneous fistula Taper Solu-Medrol. Patient started having bowel function - 2 bm o/n, no bood in stool. Patient handling clears - start soft as tolerated Manage swelling and redness around fistula. JOSE YODER DO 05/11/21 1302: Subjective Time Seen by a Provider: 10:45 Subjective/Events-last exam Pt seen and examined, denies pain and no distress. He is tolerating clears and asking when he might be sent home. Review of Systems General: No Chills, No Night Sweats Pulmonary: No Dyspnea, No Cough Cardiovascular: No: Chest Pain, Palpitations Gastrointestinal: No: Nausea, Vomiting, Abdominal Pain Objective Exam General Appearance: No Apparent Distress, WD/WN HEENT: Moist Mucous Membranes Respiratory: Lungs Clear, Normal Breath Sounds, No Accessory Muscle Use, No Respiratory Distress Cardiovascular: Regular Rate, Rhythm, No Murmur Gastrointestinal: non tender, soft, no organomegaly, other (small erythema near umbilicus, this is his fistula, has occasional output (bilious) and can be expressed) Assessment/Plan Assessment/Plan Assessment/Plan small bowel obstruction crohn's enterocutaneous fistula Taper Solu-Medrol. Patient started having bowel function - 2 bm o/n, no bood in stool. Patient handling clears - start soft as tolerated Manage swelling and redness around fistula. Supervisory-Addendum Brief Verification & Attestation Participated in pt care: history, MDM, physical Personally performed: exam, history, MDM, supervision of care Care discussed with: Medical Student Procedures: n/a Verification and Attestation of Medical Student E/M Service A medical student performed and documented this service. I then reviewed and verified all information documented by the medical student and made modifications to such information, when appropriate. I personally performed a physical exam, medical decision making and then discussed any differences between the notes and made revisions as necessary to create one note. Jose Yoder , 05/11/21 , 13:02 CORKY UMANA May 11, 2021 09:26 JOSE YODER DO May 11, 2021 13:02
[2021-05-11 14:10] VITALS: BP 100/62
== END 2021-05-11 14:10 | disposition home or self-care (01) | DRG 389 ==
LOC: EDUNIT# 14:24 → ER 14:27 → 4TH 17:40
PROVIDERS: ADMIT Internal Medicine; ATTEND Internal Medicine
DX: K56.699 Other intestinal obstruction unspecified as to partial versus complete obstruction (principal); K50.013 Crohn's disease of small intestine with fistula; F17.210 Nicotine dependence, cigarettes, uncomplicated; Z79.52 Long term (current) use of systemic steroids; Z88.6 Allergy status to analgesic agent; Z23 Encounter for immunization
CPT/HCPCS: 36415; 71045; 74177; 80048; 80053; 81000; 83605; 85007; 85025; 85027; 85610; 85730; 87040; 87088; 96361; 96365; 96366; 96367; 96368; 96375

== ENCOUNTER → 2021-12-20 | Outpatient (CLI) | payer OTHER ==
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
== END ==
LOC: RAD 15:53
PROVIDERS: ATTEND Nurse Practitioner Family
DX: M47.812 Spondylosis without myelopathy or radiculopathy, cervical region (principal)
CPT/HCPCS: 72050; 72072

== ENCOUNTER 2022-05-28 10:03 | Emergency (ER) | payer OTHER ==
[~2022-05-28] VITALS: Ht 167.7 cm; Wt 69.0 kg
[2022-05-28] MEDS ORDERED: ACETAMINOPHEN 500 MG TAB (TYLENOL) PO STA (10:44)
[2022-05-28] MEDS ORDERED: NS IV 1000 ML 1,000 ML IV SCH (10:45)
[2022-05-28 11:10] LABS: POTASSIUM 3.5 MMOL/L (3.6-5.0)
[2022-05-28 11:11] LABS: CALCIUM 8.9 MG/DL (8.5-10.1)
[2022-05-28 11:15] LABS: CREATININE SERUM 0.95 MG/DL (0.60-1.30)
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
[2022-05-28] MEDS ORDERED: RX-NIRMATRELVIR/RITONAVIR (PAXLOVID) #30 TABS PO ONE (12:15)
[2022-05-28 12:25] VITALS: BP 106/68
== END 2022-05-28 12:25 | disposition home or self-care (01) ==
LOC: EDUNIT# 10:03 → ER 10:05
DX: U07.1 COVID-19 (principal); R50.9 Fever, unspecified; F17.290 Nicotine dependence, other tobacco product, uncomplicated
CPT/HCPCS: 36415; 80048; 87636; 99283